=== PATIENT | female | born 1930 | race Caucasian/White ===

== ENCOUNTER 2020-07-04 16:17 | Inpatient (IN) | payer MEDICARE, OTHER ==
[~2020-07-04] VITALS: Ht 165.1 cm; Wt 78.5 kg
[2020-07-04] VITALS (8 sets, daily range): BP systolic 108–162; BP diastolic 73–88
[~2020-07-04 16:17] MED LIST: ACET500T73 PO; AMLO5TAB4 PO; APIX5TAB PO; ASPI-485 PO; ATOR20TA PO; ATOR40TA PO; CALC600T PO; CHOL500016 PO; ESZO3TAB27 PO; FURO-81 PO; HYDR-3194 PO; ISOS30TA4 PO; LISI-410 PO; LISI40TA PO; LORA0.5T PO; METO25TA4 PO; MULT-660 PO; NEBI10TA3 PO; OMEG500C PO; OMEP20TA62 PO; POTA20TA14 PO; SITA50TA PO; TICA90TA PO; TRAM100T3 PO
--- NOTE | 2020-07-04 17:11 | NUR ---
ARRIVAL PT ARRIVED TO ED WITH C/O OF SHORTNESS OF BREATH, BACK PAIN, FATIGUE AND WEAKNESS SINCE LAST TUESDAY. PT REPORTS SHE WAS SEEN BY HER PCP AND PRESCRIBED PREDNISONE BUT FORGETS TO TAKE IT AND WAS TOLD TO INCREASE HER LASIX BY DOUBLE HER NORMAL DOSE. BEDSIDE MONITORS APPLIED. VITAL SIGNS STABLE. BED IN LOW LOCKED POSITION. CALL LIGHT WITHIN REACH.
[2020-07-04 17:22] LABS: BASOPHIL % 0.3 % (0.0-0.2); EOSINOPHIL # 0.2 10^3/uL (0.0-0.2); EOSINOPHIL % 2.7 % (0.0-5.0); MEAN CORP HGB 29.9 pg (26-34); MONOCYTES # 0.8 10^3/uL (0.3-0.8); MONOCYTES % 8.4 % (5.0-12.0); NEUTROPHIL # 5.3 10^3/uL (1.8-7.7); NEUTROPHILS % 58.5 % (41.0-85.0); PLATELET COUNT 181 10^3/uL (150-400); RED CELL DISTRIBUTION WIDTH 15.6 % (11.5-14.5)
--- NOTE | 2020-07-04 17:33 | PCM.EKG ---
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
--- NOTE | 2020-07-04 17:35 | ER.PDOC ---
General Chief Complaint: Dyspnea/Respdistress Stated Complaint: SOB Time seen by MD: 17:28 Source: patient Exam Limitations: no limitations History of Present Illness Initial Comments Patient presents for SOB and fatigue. She tested positive for Covid in April and again in May. She was steadily improving until tuesday when she had recurrence of the cough, SOB, and extreme fatigue. She has a "rattling cough", but no production. No chest pain, Abd pain, N/V/D. No focal weakness. Laying in bed she has no complaints. She also reports nasal congestion Severity: moderate Activities at Onset: activity/exertion Prior Episodes/Possible Cause: occasional episodes Associated Symptoms: cough Prior symptoms/Treatment: Similar symptoms previous, Recenly Seen, Treated by Doctor, Recently Hospitalized Allergies: Coded Allergies: Penicillins (Unverified Adverse Reaction, Unknown, "IT JUST MAKES ME FEEL BAD", 02/28/17) codeine (Unverified Adverse Reaction, Unknown, "IT JUST MAKES ME FEEL BAD", 02/28/17) Home Meds Active Scripts Apixaban (Eliquis) 5 Mg Tablet, 5 MG PO BID for 30 Days, #60 TAB 3 Refills Prov:ELOISE HEDRICK MD 05/20/20 Isosorbide Mononitrate (ISOSORBIDE MONONITRATE ER) 30 Mg Tab.er.24h, 30 MG PO DAILY, #30 4 Refills Prov:CHARLENE WANG DOZER OPERATOR 03/02/17 Reported Medications Tramadol Hcl (TRAMADOL HCL) 100 Mg Tbmp.24hr, 100 MG PO DAILY24 05/01/20 Acetaminophen (ACETAMINOPHEN) 500 Mg Tablet, 2 TAB PO HS, #60 TAB 1 Refill 02/28/17 Cholecalciferol (Vitamin D3) (VITAMIN D3) 5,000 Unit Tablet, 1 TAB PO DAILY, #30 TAB 02/28/17 Atorvastatin 40MG (LIPITOR 40MG) 40 Mg Tablet, 1 TAB PO DAILY, #30 TAB 5 Refills 02/28/17 Omeprazole Magnesium (PRILOSEC OTC) 20 Mg Tablet.dr, 1 TAB PO DAILY, #30 TAB 3 Refills 02/28/17 Multivit-Min/FA/Lutein/Zeaxant (Macular Vitamin Tablet) 1 Each Tablet, 1 EACH PO DAILY, TABLET 01/24/14 Aspirin (ASPIR 81) 81 Mg Tablet.dr, 1 TAB PO DAILY, #30 TAB 5 Refills 01/24/14 [place]-3 Fatty Acids (FISH OIL) 500 Mg Capsule.dr, 1000 MG PO DAILY 01/24/14 Past Medical History Medical History: high cholesterol, hypertension, thyroid disease Surgical History: hysterectomy Social History Alcohol Use: none Drug Use: none Reviewed Nursing Reviewed: Vital Signs, Abn. Noted, Nursing Assessment Review of Systems Constitutional: no symptoms reported EENTM: no symptoms reported Respiratory: no symptoms reported Cardiovascular: see HPI Gastrointestinal: see HPI Psychiatric/Neurological: see HPI All Other Systems: Reviewed and Negative Physical Exam General Appearance: No Apparent Distress, WD/WN HEENT: PERRL/EOMI, Normal ENT Inspection, TMs Normal Neck: Non-Tender, Supple Respiratory: chest non-tender, no respiratory distress, crackles Cardiovascular: Normal Peripheral Pulses, Regular Rate, Rhythm, No Edema (left calf swelling) Gastrointestinal: Normal Bowel Sounds, Non Tender, Soft Extremities: Normal Range of Motion, Non-Tender Neurologic/Psychiatric: No Motor/Sensory Deficits, Alert Skin: Normal Color, Warm/Dry Results/Orders Results/Orders Vital Signs Date Time Temp Pulse Resp B/P (MAP) Pulse Ox O2 Delivery O2 Flow Rate FiO2 07/04/20 17:48 98.1 59 20 162/75 (104) 98 07/04/20 17:06 98.1 75 20 07/04/20 17:06 98.1 75 20 98 07/04/20 17:06 98.1 75 20 155/76 (102) 98 05/20/20 08:33 53 Laboratory Tests Test 07/04/20 17:16 07/04/20 19:40 White Blood Count 9.0 10^3/uL (4.5-11.0) Red Blood Count 4.08 10^6/uL (4.00-5.20) Hemoglobin 12.2 g/dL (12.0-15.0) Hematocrit 38.1 % (36.0-46.0) Mean Corpuscular Volume 93.4 fL (78-100) Mean Corpuscular Hemoglobin 29.9 pg (26-34) Mean Corpuscular Hemoglobin Concent 32.0 g/dL (33-36.5) L Red Cell Distribution Width 15.6 % (11.5-14.5) H Platelet Count 181 10^3/uL (150-400) Mean Platelet Volume 9.9 fL (7.8-11.0) Neutrophils (%) (Auto) 58.5 % (41.0-85.0) Lymphocytes (%) (Auto) 30.0 % (24.0-44.0) Monocytes (%) (Auto) 8.4 % (5.0-12.0) Neutrophils # (Auto) 5.3 10^3/uL (1.8-7.7) Lymphocytes # (Auto) 2.70 10^3/uL1 (1.0-4.8) Monocytes # (Auto) 0.8 10^3/uL (0.3-0.8) Absolute Immature Granulocyte (auto 0.01 10^3 u/L (0-2) Absolute Eosinophils (auto) 0.2 10^3/uL (0.0-0.2) Immature Granulocytes % 0.10 % (0.00-0.50) Eosinophils % 2.7 % (0.0-5.0) Basophils % 0.3 % (0.0-0.2) H Basophils # 0.0 10^3/uL (0.0-0.1) Prothrombin Time 12.5 SEC (9.3-11.3) H Prothrombin Time INR (Non-Therap) 1.2 Activated Partial Thromboplast Time 28.3 SEC (24.67-30.72) D-Dimer 0.47 mg/L (0.19-0.49) Sodium Level 144 mmol/L (132-145) # Potassium Level 3.5 mmol/L (3.6-5.2) L Chloride Level 108.0 mmol/L (96-109) Carbon Dioxide Level 26.2 mmol/L (20.0-32) Anion Gap 13.3 Blood Urea Nitrogen 16 mg/dL (7-18) Creatinine 1.12 mg/dL (0.59-1.40) Estimated GFR () 55.6 (>/=60) Est GFR (CKD-EPI)(Non-Afr French) 45.9 (>/=60) BUN/Creatinine Ratio 14.0 Glucose Level 144 mg/dL (70-110) H Calcium Level 8.5 mg/dL (8.4-10.5) Total Bilirubin 1.0 mg/dL (0.2-1.0) Aspartate Amino Transferase (AST) 19 U/L (0-35) Alanine Aminotransferase (ALT) 16 U/L (12-78) Alkaline Phosphatase 60 U/L (50-136) Troponin I 0.05 ng/mL (0.00-0.05) Pro-B-Type Natriuretic Peptide 6231 pg/mL (0-450) H Total Protein 6.4 g/dL (6.4-8.2) Albumin 3.1 g/dL (3.4-5.0) L Globulin 3.3 Albumin/Globulin Ratio 0.939 SARS-CoV-2 Antigen (Rapid) NEGATIVE (NEGATIVE) Progress Progress CXR:Interstitial and ground-glass infiltrates are present throughout both lungs, moderately improved from 05/17/[address] Saucedo so I discussed with him and he wants patient admitted for IV diuresis. EKG/XRAY/CT/US EKG: NSR, RBBB, LVH EKG Comments: rate 65, ER DEPART Departure Time of Disposition: 23:13 Disposition: 09 ADMITTED INPATIENT Impression: Primary Impression: Acute exacerbation of CHF (congestive heart failure) Condition: Stable Referrals: NEFTALY CALL DOZER OPERATOR (PCP) PRIMARY CARE PROVIDER Comments Admitted to Dr. Bowen, discussed with Dr. Saucedo who will be consulting. Duration or Time Spent with Pa: 60 min Problem Qualifiers Primary Impression: Acute exacerbation of CHF (congestive heart failure) Heart failure type: unspecified Qualified Codes: I50.9 - Heart failure, unspecified LILLI LOJA MD Jul 04, 2020 17:35 NANDINI HURST MD Jul 04, 2020 23:15
[2020-07-04 17:49] LABS: CALCIUM 8.5 mg/dL (8.4-10.5); CARBON DIOXIDE 26.2 mmol/L (20.0-32)
--- NOTE | 2020-07-04 18:22 | DIREP ---
PROCEDURE:CHEST 1 VIEW COMPARISON:[facility], CR, XRAY CHEST SINGLE VW, 05/17/2020, 05:53 PM. INDICATIONS:SOB FINDINGS: LUNGS/PLEURA:Interstitial and ground-glass infiltrates are present in both lungs, moderately improved from 05/17/2020. No new area of consolidation. No pleural effusions. No pneumothorax. VASCULATURE:Normal. Unremarkable pulmonary vasculature. CARDIAC:Normal. No cardiac silhouette abnormality or cardiomegaly. MEDIASTINUM:Normal. No visible mass or adenopathy. BONES:Normal. No fracture or visible bony lesion. OTHER:Negative. CONCLUSION: 1. Interstitial and ground-glass infiltrates are present throughout both lungs, moderately improved from 05/17/2020. Dictated by: Deng Orona MD on 07/04/2020 at 06:20 PM
[2020-07-04] MEDS ORDERED: LASIX IV STA (23:16)
[2020-07-04] MEDS ORDERED: LASIX ONE (23:23)
[2020-07-05] VITALS (9 sets, daily range): BP systolic 87–153; BP diastolic 49–78
--- NOTE | 2020-07-05 02:52 | PCM.HP ---
History of Present Illness History of Present Illness THIS EVALUATION WAS PERFORMED ON (DATE OF SERVICE): 07/04/2020 TIME SEEN: 0145 hours Chief Complaint: Dyspnea on exertion History of Present Illness: This is an 89-year-old female with a history of HTN, HLD, DM, CHF, chronic venous insufficiency, CKD 3, CAD, and recent PE. The patient was hospitalized here at [facility] in early May 2020 with COVID-19 pneumonia.During that hospital stay she was found to have bilateral pulmonary embolism. She was started on Eliquis, which she currently still takes. On 07/02/2020, the patient reported feeling tired, fatigued, weak. She had shortness of breath just walking across the bedroom. She denied chest pain. She noted a cough on which worsened on Tuesday. No sputum production. She is chronically on oxygen 2 L/min by nasal cannula and had the shortness of breath with minimal exertion even with the oxygen on. Because of the severe shortness of breath, she presented to the ED for evaluation. She denied fever, chills, sore throat, abdominal pain, nausea, vomiting, diarrhea. She denied missing any doses of her medications. In the ED, she was afebrile. White count normal. Blood chemistries unremarkable. Rapid Covid test negative. D-dimer normal. BNP 6231, up about 2000 from the last value. Chest x-ray showed overall improvement compared to last image. The patient was felt to have exacerbation of heart failure. The blowing weasand on-call, Dr. Saucedo, was contacted. He recommended hospitalization and IV diuretics twice daily. The patient was given IV Lasix. The hospitalist service was contacted for admission. Home medications: Aspirin 81 mg daily Furosemide 20 mg daily Lisinopril 40 mg daily Isosorbide mononitrate 30 mg daily Hydralazine 25 mg twice daily Carvedilol 6.25 mg twice daily Atorvastatin 40 mg every morning Levothyroxine, dose not known, 1 tablet Tuesday, Tuesday, Tuesday Tramadol 50 mg every 12 hours as needed for pain PreserVision 1 daily Vitamin C, dose not known, daily Vitamin D, dose not known, daily Past Medical History: Coronary artery disease Status post stent Hypertension Hyperlipidemia Type 2 diabetes mellitus without complications, without use of insulin Chronic diastolic congestive heart failure Chronic venous insufficiency Chronic kidney disease stage III Pulmonary embolism Diagnosed May 2020,Diagnosed May 2020, Family History: Diabetes mellitus-father Heart problems of unspecified type-father . Past Surgical History: Cataract Removal (Bilateral), Tonsillectomy, Other (Hysterectomy. Cardiac catheterization in 2017 with 2 stents placed.) Past Social History Smoke: No Alcohol: none Drugs: None Lives: with Family Travel Hx EBOLA RISK:Travel to/contact w: No Review of Systems Constitutional: Weakness (Generalized without focal deficit), Malaise; No: Fever, Chills, Sweats, Other Eyes: No: Pain, Vision change, Conjunctivae inflammation, Eyelid inflammation, Redness ENT: No: Ear pain, Ear discharge, Nose discharge, Nose congestion, Mouth pain, Mouth swelling, Throat pain Respiratory: Cough, Dry, SOB with excertion; No: Shortness of breath, Wheezing, Hemoptysis, Pleuritic Pain, Sputum Cardiovascular: No: Chest Pain, Palpitations, Orthopnea, Paroxysmal Noc. Dyspnea, Edema, Lt Headedness Gastrointestinal: No: Nausea, Vomiting, Abdominal Pain, Diarrhea, Constipation, Melena, Hematochezia Genitourinary: No Dysuria, No Frequency, No Incontinence, No Hematuria, No Retention Musculoskeletal: No: neck pain, shoulder pain, arm pain, back pain, hand pain, leg pain, foot pain Skin: No: Rash, Lesions, Jaundice, Bruising Neurological: Weakness (Generalized without focal deficit); No: Numbness, Incoordination, Change in speech, Confusion, Seizures Allergies: Coded Allergies: Penicillins (Unverified Adverse Reaction, Unknown, "IT JUST MAKES ME FEEL BAD", 02/28/17) codeine (Unverified Adverse Reaction, Unknown, "IT JUST MAKES ME FEEL BAD", 02/28/17) Scheduled Acetaminophen (Acetaminophen), 2 TAB PO HS, (Reported) Apixaban (Eliquis), 5 MG PO BID Aspirin (Aspir 81), 1 TAB PO DAILY, (Reported) Atorvastatin 40MG (Lipitor 40MG), 1 TAB PO DAILY, (Reported) Cholecalciferol (Vitamin D3) (Vitamin D3), 1 TAB PO DAILY, (Reported) Isosorbide Mononitrate (Isosorbide Mononitrate Er), 30 MG PO DAILY Multivit-Min/FA/Lutein/Zeaxant (Macular Vitamin Tablet), 1 EACH PO DAILY, (Reported) [place]-3 Fatty Acids (Fish Oil), 1,000 MG PO DAILY, (Reported) Omeprazole Magnesium (Prilosec Otc), 1 TAB PO DAILY, (Reported) Tramadol Hcl (Tramadol Hcl), 100 MG PO DAILY24, (Reported) VTE VTE Risk Total Score: >5 VTE Risk Score VTE Risk: Score 0-1 = Low Risk (Aggressive mobilization; early ambulation; no VTE prophylaxis required) Score 2: Moderate Risk (Intermittent/Pneumatic Compression Device OR Lovenox/Heparin/Coumadin) Score 3-4: High Risk (Intermittent/Pneumatic Compression Device AND Lovenox/Heparin/Coumadin) Score > or =5: Highest Risk (Intermittent/Pneumatic Compression Device AND Lovenox/Heparin/Coumadin) Antico:Hep/LMWH/Coum/Xarelto: Yes VTE VTE Present on Admission: No Currently receiving anticoagul: Yes VTE Risk Total Score: >5 Antico:Hep/LMWH/Coum/Xarelto: Yes Exam Vital Signs Vital Signs Date Time Temp Pulse Resp B/P (MAP) Pulse Ox O2 Delivery O2 Flow Rate FiO2 07/05/20 02:12 Room Air 07/04/20 23:57 98.6 68 18 108/88 (95) 96 2.00 Weight 78.49 kg Height 165.1 cm BMI 28.8 kg/m General Appearance: Alert, Oriented X3, Cooperative, No acute distress HEENT: Atraumatic, PERRLA, EOMI, Mucous membr. moist/pink, Other (Normocephalic. Oropharynx clear without erythema, exudates, or ulcerations.) Respiratory: Other (Normal air movement. Rales in the bases bilaterally.) Cardiovascular: Regular rate, Normal S1, Normal S2, No murmurs Abdominal: Normal bowel sounds, Soft, No tenderness, No hepatospenomegaly, No masses Extremities: No clubbing, No cyanosis, No edema, Normal pulses, No tenderness/swelling Skin: No rash, No breakdown, No lesions Neuro: Normal speech, Strength at 5/5 X4 ext, Normal tone, Sensation intact, Cranial nerves 3-12 NL, Reflexes 2+ LAB RESULTS Item Value Date Time White Blood Count 9.0 10^3/uL 07/04/20 171 Hemoglobin 12.2 g/dL 07/04/20 171 Hematocrit 38.1 % 07/04/20 171 Platelet Count 181 10^3/uL 07/04/20 1716 Item Value Date Time Prothrombin Time 12.5 SEC H 07/04/20 1716 Prothrombin Time INR (Non-Therap) 1.2 07/04/20 1716 Activated Partial Thromboplast Time 28.3 SEC 07/04/20 1716 D-Dimer 0.47 mg/L 07/04/20 1716 Item Value Date Time Sodium Level 144 mmol/L # 07/04/20 1716 Potassium Level 3.5 mmol/L L 07/04/20 1716 Chloride Level 108.0 mmol/L 07/04/20 1716 Carbon Dioxide Level 26.2 mmol/L 07/04/20 1716 Anion Gap 13.3 07/04/20 1716 Blood Urea Nitrogen 16 mg/dL 07/04/20 1716 Creatinine 1.12 mg/dL 07/04/20 1716 Glucose Level 144 mg/dL H 07/04/20 1716 Calcium Level 8.5 mg/dL 07/04/20 1716 Total Bilirubin 1.0 mg/dL 07/04/20 1716 Aspartate Amino Transf (AST/SGOT) 19 U/L 07/04/20 1716 Alanine Aminotransferase (ALT/SGPT) 16 U/L 07/04/20 1716 Alkaline Phosphatase 60 U/L 07/04/20 1716 Total Protein 6.4 g/dL 07/04/20 1716 Albumin 3.1 g/dL L 07/04/20 1716 Globulin 3.3 07/04/20 1716 Item Value Date Time Troponin I 0.05 ng/mL 07/04/20 1716 Pro-B-Type Natriuretic Peptide 6231 pg/mL H 07/04/20 1716 Item Value Date Time SARS-CoV-2 Antigen (Rapid) NEGATIVE 07/04/20 1940 Radiology: PROCEDURE:CHEST 1 VIEW FINDINGS: LUNGS/PLEURA:Interstitial and ground-glass infiltrates are present in both lungs, moderately improved from 05/17/2020. No new area of consolidation. No pleural effusions. No pneumothorax. VASCULATURE:Normal. Unremarkable pulmonary vasculature. CARDIAC:Normal. No cardiac silhouette abnormality or cardiomegaly. MEDIASTINUM:Normal. No visible mass or adenopathy. BONES:Normal. No fracture or visible bony lesion. OTHER:Negative. CONCLUSION: 1. Interstitial and ground-glass infiltrates are present throughout both lungs, moderately improved from 05/17/2020. Dictated by: Deng Orona MD on 07/04/2020 at 06:20 PM (I have personally interpreted): NSR. LAD (-67 degrees). Bifascicular block (RBBB + LAFB. . Dietary Evaluation Dietary Evaluation Recommendations by RD: Dietary education by RD Assessment/Plan Assessment/Plan Assessment/Plan ASSESSMENT Acute on chronic diastolic congestive heart failure Echo done in May 2020 revealed normal EF (55 to 60%). Diastolic dysfunction noted. Pulmonary embolism Diagnosed in May 2020, placed on Eliquis and she is continuing to take this. No indication of exacerbation at this time. Multiple chronic medical problems, stable PLAN Admit Acute on chronic diastolic congestive heart failure Telemetry monitoring IV furosemide twice daily Monitor I&O Daily weight Monitor renal function, potassium, sodium Pulmonary embolism Continue Eliquis twice daily Multiple chronic medical problems, stable Continue home meds At this point, I anticipate patient will be hospitalized greater than 2 midnights. I expect she will be discharged home. I do not anticipate a need for DME. Hospitalization is required for Telemetry monitoring, IV diuretics, I&O monitoring, daily weights, serial lab monitoring. Resuscitation/advance directives: Discussed with patient. Full code. No advance directive. No medical POA document. Yvette Hunt III, MD . Problems: (1) Acute on chronic diastolic congestive heart failure Status: Acute ICD Code: I50.33 - Acute on chronic diastolic (congestive) heart failure SNOMED: 162748854, [id number] (2) Pulmonary embolism ICD Code: I26.99 - Other pulmonary embolism without acute cor pulmonale SNOMED: 00018293 Problem Qualifiers (1) Pulmonary embolism: Chronicity: acute Acute cor pulmonale presence: without acute cor pulmonale JENNA HUNT MD Jul 05, 2020 02:52
[2020-07-05 05:25] LABS: BASOPHIL % 0.2 % (0.0-0.2); EOSINOPHIL # 0.3 10^3/uL (0.0-0.2); EOSINOPHIL % 3.4 % (0.0-5.0); LYMPHOCYTES % 26.4 % (24.0-44.0); MEAN CORP HGB 30.6 pg (26-34); MONOCYTES # 0.8 10^3/uL (0.3-0.8); MONOCYTES % 8.9 % (5.0-12.0); NEUTROPHIL # 5.3 10^3/uL (1.8-7.7); PLATELET COUNT 177 10^3/uL (150-400); RED CELL DISTRIBUTION WIDTH 15.6 % (11.5-14.5)
[2020-07-05 05:31] LABS: CALCIUM 9.1 mg/dL (8.4-10.5); CARBON DIOXIDE 27.4 mmol/L (20.0-32)
[2020-07-05] MEDS ORDERED: APRESOLINE PO SCH (09:00)
[2020-07-05] MEDS: ZESTRIL PO SCH (09:00)
[2020-07-05] MEDS ORDERED: IMDUR PO SCH (09:00)
[2020-07-05] MEDS: LASIX IV SCH ×2 (09:46→21:00)
[2020-07-05] MEDS: COREG PO SCH ×2 (09:47→21:00)
[2020-07-05] MEDS: ASPIRIN EC PO SCH (09:47)
[2020-07-05] MEDS: DEXAMETHASONE 10 MG/ML VIAL IV SCH (12:20)
[2020-07-05] MEDS ORDERED: NS 250ML 250 ML IV ONE (18:05)
--- NOTE | 2020-07-05 19:53 | CNH ---
DATE OF CONSULTATION: 07/05/2020 REASON FOR CONSULTATION: Acute decompensated heart failure secondary to diastolic dysfunction. HISTORY OF PRESENT ILLNESS: This is an 89-year-old female who presented to the Emergency Room yesterday with progressively worsening shortness of breath and extreme fatigue. She denies any chest pain or palpitations. EKG done in the Emergency Room revealed normal sinus rhythm with a right bundle branch block with no evidence of myocardial ischemia. ProBNP was noted to be significantly elevated at 6231. A diagnosis of acute decompensated heart failure was made and a consultation was placed to Cardiology Service. Troponin is negative x 1. Chest x-ray done on admission revealed interstitial and ground-glass infiltrates present throughout both lungs moderately improved from prior chest x-ray. Of note, the patient was diagnosed with COVID-19 infection in May 2020 and subsequently developed pulmonary embolism of which she currently takes Eliquis oral anticoagulation. PAST MEDICAL HISTORY: Significant for: 1. Chronic CHF. 2. Recent diagnosis of pulmonary embolism. 3. Hypertension. 4. Hyperlipidemia. 5. Type 2 diabetes mellitus. 6. Mixed hyperlipidemia. 7. Chronic venous insufficiency. 8. Chronic kidney disease stage 3. 9. Severe tricuspid regurgitation. 10. Known CAD, status post PCI in the past. PAST SURGICAL HISTORY: 1. Bilateral cataract surgery. 2. Hysterectomy. 3. Cardiac catheterization done in 2017 with PCI x 2 stents. FAMILY HISTORY: She admits to family history of premature coronary artery disease, but denies sudden cardiac . SOCIAL HISTORY: Denies alcohol use, denies tobacco use, denies illicit drug use. ALLERGIES: SHE IS ALLERGIC TO PENICILLIN AND CODEINE. MEDICATIONS: She takes at home includes: 1. [place] 3 fatty acid. 2. Aspirin 81 mg daily. 3. Lasix 20 mg Tuesday, Tuesday, Tuesday. 4. Lisinopril 40 mg daily. 5. Omeprazole. 6. Lipitor 40 mg at bedtime. 7. Hydralazine 25 mg b.i.d. 8. Tramadol. 9. Imdur 30 mg daily. 10. Amlodipine 10 mg daily. 11. Metoprolol tartrate 25 mg b.i.d. REVIEW OF SYSTEMS: As per HPI and as per previous records. All systems reviewed and negative for interval change. PHYSICAL EXAMINATION: VITAL SIGNS: Blood pressure is 87/49, respiratory rate is 19, pulse is 60, temperature 97.8, pulse oximetry is 95% on room air. GENERAL: She is in no apparent distress, alert and oriented x 3. HEENT: Normocephalic, atraumatic. Extraocular muscles intact. Pupils equal, round, reactive to light and accommodation. LUNGS: Decreased breath sounds bilaterally. CARDIAC: S1, S2. No gallops, plus 3/6 holosystolic murmur. ABDOMEN: Soft, nontender, nondistended, positive bowel sounds in all 4 quadrants. EXTREMITIES: No cyanosis, no clubbing, +1 pitting edema bilaterally. NEUROLOGIC: No neurological deficits. Sensation is intact. IMPRESSION: 1. Acute decompensated heart failure secondary to diastolic dysfunction. 2. Recent diagnosis of pulmonary embolism following COVID-19 infection in May 2020. 3. Recent diagnosis of COVID-19 infection in May 2020. 4. Known coronary artery disease, status post PCI x 2 stents in 2017. 5. Hypertension. 6. Hyperlipidemia. 7. Type 2 diabetes mellitus. 8. Chronic congestive heart failure due to diastolic dysfunction. 9. Chronic venous insufficiency. 10. Chronic kidney disease stage 3. 11. Severe tricuspid regurgitation. 12. Normal cardiac stress test done July 2019. RECOMMENDATIONS: This is an 89-year-old female who is presenting to the hospital with progressively worsening shortness of breath and is found to be in decompensated heart failure. She is currently receiving diuretic therapy with Lasix 40 IV b.i.d. She appears to be hypotensive at this time with a blood pressure of 87/49. I am going to discontinue her hydralazine as well as Imdur medications. She will be kept on beta milan as well as PATRICIA inhibitor therapy for now. I certainly would recommend to monitor blood pressure and heart rate daily. I would obtain a 2D echo to reevaluate her left ventricular ejection fraction and structural integrity of her heart. She does have a history of severe tricuspid regurgitation. However, she is refusing any surgical invasive therapies at this time. EKG does not show any evidence of myocardial ischemia. She denies any chest pain. Troponin is currently negative x 1. She is currently on Eliquis for oral anticoagulation given her recent diagnosis of pulmonary embolism following COVID-19 infection. Further recommendations will be made based on her overall clinical course. Eventually when she becomes euvolemic, I would likely pursue cardiac stress test in the outpatient setting. LENNOX MULTANI D.O. DR: Nehal JOB# [id number]
[2020-07-05] MEDS ORDERED: TYLENOL PO ONE (21:51)
[2020-07-05] MEDS: LIPITOR PO SCH (22:12)
[2020-07-05] MEDS: TYLENOL PO SCH (22:13)
[2020-07-05] MEDS: ELIQUIS PO SCH (22:13)
[2020-07-06] VITALS (9 sets, daily range): BP systolic 105–136; BP diastolic 48–85
[2020-07-06] MEDS: LASIX IV SCH (09:00)
[2020-07-06] MEDS: ZESTRIL PO SCH (09:00)
[2020-07-06] MEDS: DEXAMETHASONE 10 MG/ML VIAL IV SCH (09:00)
[2020-07-06] MEDS: ASPIRIN EC PO SCH (10:05)
[2020-07-06] MEDS: ELIQUIS PO SCH ×2 (10:06→20:48)
[2020-07-06 10:35] LABS: BASOPHIL % 0.4 % (0.0-0.2); EOSINOPHIL # 0.5 10^3/uL (0.0-0.2); EOSINOPHIL % 5.8 % (0.0-5.0); LYMPHOCYTES # 2.71 10^3/uL1 (1.0-4.8); LYMPHOCYTES % 33.7 % (24.0-44.0); MEAN CORP HGB 30.3 pg (26-34); MONOCYTES # 0.8 10^3/uL (0.3-0.8); MONOCYTES % 9.3 % (5.0-12.0); NEUTROPHIL # 4.1 10^3/uL (1.8-7.7); NEUTROPHILS % 50.7 % (41.0-85.0); PLATELET COUNT 187 10^3/uL (150-400); RED CELL DISTRIBUTION WIDTH 15.4 % (11.5-14.5)
[2020-07-06 10:50] LABS: CALCIUM 8.8 mg/dL (8.4-10.5); CARBON DIOXIDE 30.4 mmol/L (20.0-32)
--- NOTE | 2020-07-06 14:41 | PRM.PN ---
Subjective Subjective Date: Jul 06, 2020 Time: 14:38 Subjective Resting comfortably in bed no overnight events Patient History: Alzheimer's disease 32 MOTHER, , Age:84 Cerebrovascular disorder 32 MOTHER, , Age:82 Congestive heart failure 33 FATHER, , Age:90 Diabetes mellitus 33 FATHER, , Age:90 FH: chronic lung disease requiring oxygen 33 FATHER, , Age:90 FH: coronary artery disease 32 MOTHER, , Age:82 FH: heart attack 33 FATHER, , Age:90 No known health problems 21 CHILD, , Age:28 No Family History of: Asthma Hypertension Parkinson's disease VTE VTE Risk Total Score: >5 VTE Risk Score VTE Risk: Score 0-1 = Low Risk (Aggressive mobilization; early ambulation; no VTE prophylaxis required) Score 2: Moderate Risk (Intermittent/Pneumatic Compression Device OR Lovenox/Heparin/Coumadin) Score 3-4: High Risk (Intermittent/Pneumatic Compression Device AND Lovenox/Heparin/Coumadin) Score > or =5: Highest Risk (Intermittent/Pneumatic Compression Device AND Lovenox/Heparin/Coumadin) Antico:Hep/LMWH/Coum/Xarelto: Yes Review of Systems Constitutional: Weakness (Generalized without focal deficit), Malaise; No: Fever, Chills, Sweats, Other Eyes: No: Pain, Vision change, Conjunctivae inflammation, Eyelid inflammation, Redness ENT: No: Ear pain, Ear discharge, Nose discharge, Nose congestion, Mouth pain, Mouth swelling, Throat pain Respiratory: Cough, Dry, SOB with excertion; No: Shortness of breath, Wheezing, Hemoptysis, Pleuritic Pain, Sputum Cardiovascular: No: Chest Pain, Palpitations, Orthopnea, Paroxysmal Noc. Dyspnea, Edema, Lt Headedness Gastrointestinal: No: Nausea, Vomiting, Abdominal Pain, Diarrhea, Constipation, Melena, Hematochezia Genitourinary: No Dysuria, No Frequency, No Incontinence, No Hematuria, No Retention Musculoskeletal: No: neck pain, shoulder pain, arm pain, back pain, hand pain, leg pain, foot pain Skin: No: Rash, Lesions, Jaundice, Bruising Neurological: Weakness (Generalized without focal deficit); No: Numbness, Incoordination, Change in speech, Confusion, Seizures Allergies: Coded Allergies: Penicillins (Unverified Adverse Reaction, Unknown, "IT JUST MAKES ME FEEL BAD", 02/28/17) codeine (Unverified Adverse Reaction, Unknown, "IT JUST MAKES ME FEEL BAD", 02/28/17) Scheduled Acetaminophen (Acetaminophen), 2 TAB PO HS, (Reported) Apixaban (Eliquis), 5 MG PO BID Aspirin (Aspir 81), 1 TAB PO DAILY, (Reported) Atorvastatin 40MG (Lipitor 40MG), 1 TAB PO DAILY, (Reported) Cholecalciferol (Vitamin D3) (Vitamin D3), 1 TAB PO DAILY, (Reported) Isosorbide Mononitrate (Isosorbide Mononitrate Er), 30 MG PO DAILY Multivit-Min/FA/Lutein/Zeaxant (Macular Vitamin Tablet), 1 EACH PO DAILY, (Reported) Lilly-3 Fatty Acids (Fish Oil), 1,000 MG PO DAILY, (Reported) Omeprazole Magnesium (Prilosec Otc), 1 TAB PO DAILY, (Reported) Tramadol Hcl (Tramadol Hcl), 100 MG PO DAILY24, (Reported) Objective Vitals and I/O Vital Sign - Last 24 Hours 07/06/20 07/06/20 07/06/20 07/06/20 09:00 09:00 09:00 09:03 Temp 97.7 97.7 Pulse 55 55 Resp 20 20 B/P (MAP) 107/62 107/62 114/53 (73) 114/53 (73) Pulse Ox 97 97 07/06/20 07/06/20 10:21 13:36 Temp 97.7 Pulse 55 Resp 20 B/P (MAP) 124/64 (84) Pulse Ox 98 O2 Delivery Nasal Cannula O2 Flow Rate 2.00 Intake and Output 07/06/20 07:00 Intake Total 480 ml Output Total 1400 ml Balance -920 ml General: Alert, Oriented X3, Cooperative, No acute distress HEENT: Atraumatic, PERRLA, EOMI, Mucous membr. moist/pink, Other (Normocephalic. Oropharynx clear without erythema, exudates, or ulcerations.) Lungs: Clear to auscultation, Normal air movement, Other (Normal air movement. Rales in the bases bilaterally.) Heart: Regular rate, Normal S1, Normal S2, No murmurs Abdomen: Normal bowel sounds, Soft, No tenderness, No hepatospenomegaly, No masses Extremities: No clubbing, No cyanosis, No edema, Normal pulses, No tenderness/swelling Neuro: Normal speech, Strength at 5/5 X4 ext, Normal tone, Sensation intact, Cranial nerves 3-12 NL, Reflexes 2+ Psych/Mental Status: Mood NL All Results(Lab/Rad) Laboratory Tests Test 07/06/20 09:45 White Blood Count 8.1 10^3/uL Red Blood Count 3.99 10^6/uL Hemoglobin 12.1 g/dL Hematocrit 37.9 % Mean Corpuscular Volume 95.0 fL Mean Corpuscular Hemoglobin 30.3 pg Mean Corpuscular Hemoglobin Concent 31.9 g/dL Red Cell Distribution Width 15.4 % Platelet Count 187 10^3/uL Mean Platelet Volume 10.4 fL Neutrophils (%) (Auto) 50.7 % Lymphocytes (%) (Auto) 33.7 % Monocytes (%) (Auto) 9.3 % Neutrophils # (Auto) 4.1 10^3/uL Lymphocytes # (Auto) 2.71 10^3/uL1 Monocytes # (Auto) 0.8 10^3/uL Absolute Immature Granulocyte (auto 0.01 10^3 u/L Absolute Eosinophils (auto) 0.5 10^3/uL Immature Granulocytes % 0.10 % Eosinophils % 5.8 % Basophils % 0.4 % Basophils # 0.0 10^3/uL Sodium Level 146 mmol/L Potassium Level 4.2 mmol/L Chloride Level 108.0 mmol/L Carbon Dioxide Level 30.4 mmol/L Anion Gap 11.8 Blood Urea Nitrogen 15 mg/dL Creatinine 1.20 mg/dL Estimated GFR () 51.3 Est GFR (CKD-EPI)(Non-Afr Jamaican) 42.4 BUN/Creatinine Ratio 12.0 Glucose Level 161 mg/dL Calcium Level 8.8 mg/dL Total Bilirubin 0.8 mg/dL Aspartate Amino Transf (AST/SGOT) 19 U/L Alanine Aminotransferase (ALT/SGPT) 13 U/L Alkaline Phosphatase 59 U/L Total Protein 6.1 g/dL Albumin 2.9 g/dL Globulin 3.2 Albumin/Globulin Ratio 0.906 Current Medications Medications (Trade) Dose Ordered Sig/Irais Route PRN Reason Start Time Stop Time Status Last Admin Dose Admin Furosemide (Lasix) 40 mg STAT STAT IV 07/04/20 23:16 07/04/20 23:17 DC 07/04/20 23:27 Furosemide (Lasix) 40 mg STK-MED ONCE .ROUTE 07/04/20 23:23 07/04/20 23:23 DC Aspirin (Aspirin Ec) 81 mg DAILY PO 07/05/20 09:00 08/04/20 08:59 07/06/20 10:05 Acetaminophen (Tylenol) 1,000 mg HS PO 07/05/20 21:00 08/04/20 20:59 07/05/20 22:13 Lisinopril (Zestril) 40 mg DAILY PO 07/05/20 09:00 08/04/20 08:59 07/05/20 09:00 Isosorbide Mononitrate (Imdur) 30 mg DAILY PO 07/05/20 09:00 07/05/20 17:35 DC 07/05/20 09:48 Hydralazine HCl (Apresoline) 25 mg BID PO 07/05/20 09:00 07/05/20 17:35 DC 07/05/20 09:47 Carvedilol (Coreg) 6.25 mg BID PO 07/05/20 09:00 07/06/20 00:57 DC 07/05/20 09:47 Atorvastatin Calcium (Lipitor) 40 mg HS PO 07/05/20 21:00 08/04/20 20:59 07/05/20 22:12 Levothyroxine Sodium (Levothyroxine Sodium) 25 mcg MoWeFr@0630 PO 07/07/20 06:30 08/06/20 06:29 Furosemide (Lasix) 40 mg BID IV 07/05/20 09:00 08/04/20 08:59 07/05/20 09:46 Sodium Chloride 250 ml @ ud STK-MED ONCE IV 07/05/20 18:05 07/05/20 18:05 DC Acetaminophen (Tylenol) 500 mg STK-MED ONCE PO 07/05/20 21:51 07/05/20 21:51 DC Course Sepsis Screening Results: Posi: NEGATIVE Sepsis Qualifier/Stage: NO DEFINITE RISK Duration or Total Time Spent w: 60 min Vitals & review Data Vital Sign - Last 24 Hours 07/06/20 07/06/20 07/06/20 07/06/20 09:00 09:00 09:00 09:03 Temp 97.7 97.7 Pulse 55 55 Resp 20 20 B/P (MAP) 107/62 107/62 114/53 (73) 114/53 (73) Pulse Ox 97 97 07/06/20 07/06/20 10:21 13:36 Temp 97.7 Pulse 55 Resp 20 B/P (MAP) 124/64 (84) Pulse Ox 98 O2 Delivery Nasal Cannula O2 Flow Rate 2.00 Intake and Output 07/06/20 07:00 Intake Total 480 ml Output Total 1400 ml Balance -920 ml Laboratory Tests Test 07/04/20 17:16 07/04/20 19:40 07/05/20 05:07 07/06/20 09:45 White Blood Count 9.0 10^3/uL 8.7 10^3/uL 8.1 10^3/uL Red Blood Count 4.08 10^6/uL 3.92 10^6/uL 3.99 10^6/uL Hemoglobin 12.2 g/dL 12.0 g/dL 12.1 g/dL Hematocrit 38.1 % 36.5 % 37.9 % Mean Corpuscular Volume 93.4 fL 93.1 fL 95.0 fL Mean Corpuscular Hemoglobin 29.9 pg 30.6 pg 30.3 pg Mean Corpuscular Hemoglobin Concent 32.0 g/dL 32.9 g/dL 31.9 g/dL Red Cell Distribution Width 15.6 % 15.6 % 15.4 % Platelet Count 181 10^3/uL 177 10^3/uL 187 10^3/uL Mean Platelet Volume 9.9 fL 9.6 fL 10.4 fL Neutrophils (%) (Auto) 58.5 % 61.0 % 50.7 % Lymphocytes (%) (Auto) 30.0 % 26.4 % 33.7 % Monocytes (%) (Auto) 8.4 % 8.9 % 9.3 % Neutrophils # (Auto) 5.3 10^3/uL 5.3 10^3/uL 4.1 10^3/uL Lymphocytes # (Auto) 2.70 10^3/uL1 2.30 10^3/uL1 2.71 10^3/uL1 Monocytes # (Auto) 0.8 10^3/uL 0.8 10^3/uL 0.8 10^3/uL Absolute Immature Granulocyte (auto 0.01 10^3 u/L 0.01 10^3 u/L 0.01 10^3 u/L Absolute Eosinophils (auto) 0.2 10^3/uL 0.3 10^3/uL 0.5 10^3/uL Immature Granulocytes % 0.10 % 0.10 % 0.10 % Eosinophils % 2.7 % 3.4 % 5.8 % Basophils % 0.3 % 0.2 % 0.4 % Basophils # 0.0 10^3/uL 0.0 10^3/uL 0.0 10^3/uL Prothrombin Time 12.5 SEC Prothrombin Time INR (Non-Therap) 1.2 Activated Partial Thromboplast Time 28.3 SEC D-Dimer 0.47 mg/L Sodium Level 144 mmol/L 145 mmol/L 146 mmol/L Potassium Level 3.5 mmol/L 3.3 mmol/L 4.2 mmol/L Chloride Level 108.0 mmol/L 108.0 mmol/L 108.0 mmol/L Carbon Dioxide Level 26.2 mmol/L 27.4 mmol/L 30.4 mmol/L Anion Gap 13.3 12.9 11.8 Blood Urea Nitrogen 16 mg/dL 17 mg/dL 15 mg/dL Creatinine 1.12 mg/dL 1.22 mg/dL 1.20 mg/dL Estimated GFR () 55.6 50.3 51.3 Est GFR (CKD-EPI)(Non-Afr Jamaican) 45.9 41.6 42.4 BUN/Creatinine Ratio 14.0 13.0 12.0 Glucose Level 144 mg/dL 220 mg/dL 161 mg/dL Calcium Level 8.5 mg/dL 9.1 mg/dL 8.8 mg/dL Total Bilirubin 1.0 mg/dL 0.8 mg/dL Aspartate Amino Transf (AST/SGOT) 19 U/L 19 U/L Alanine Aminotransferase (ALT/SGPT) 16 U/L 13 U/L Alkaline Phosphatase 60 U/L 59 U/L Troponin I 0.05 ng/mL Pro-B-Type Natriuretic Peptide 6231 pg/mL 5481 pg/mL Total Protein 6.4 g/dL 6.1 g/dL Albumin 3.1 g/dL 2.9 g/dL Globulin 3.3 3.2 Albumin/Globulin Ratio 0.939 0.906 SARS-CoV-2 Antigen (Rapid) NEGATIVE Current Medications Medications (Trade) Dose Ordered Sig/Irais PRN Reason Start Time Stop Time Status Last Admin Acetaminophen (Tylenol) 1,000 mg HS 07/05/20 21:00 08/04/20 20:59 07/05/20 22:13 Aspirin (Aspirin Ec) 81 mg DAILY 07/05/20 09:00 08/04/20 08:59 07/06/20 10:05 Atorvastatin Calcium (Lipitor) 40 mg HS 07/05/20 21:00 08/04/20 20:59 07/05/20 22:12 Furosemide (Lasix) 40 mg BID 07/05/20 09:00 08/04/20 08:59 07/05/20 09:46 Levothyroxine Sodium (Levothyroxine Sodium) 25 mcg MoWeFr@0630 07/07/20 06:30 08/06/20 06:29 Lisinopril (Zestril) 40 mg DAILY 07/05/20 09:00 08/04/20 08:59 07/05/20 09:00 LEVEL 1 SEPSIS INFECTION CRITE: None/Not assessed LEVEL 2-SIRS (LIST ALL THAT AP: None/Not assessed Cardiovascular Evidence: Not Assessed or None Hematologic Evidence: None/Not assessed Hepatic Evidence: None/Not assessed Metabolic Evidence: None/Not assessed Neurological Evidence: None/Not assessed Respiratory Evidence: Need for O2 to keep>90% Renal Evidence: >Crea0.5mg frm baseline O2 Sat by Pulse Oximetry: 98 Oxygen Flow Rate: 2.00 Assessment/Plan Assessment/Plan Plan ASSESSMENT Acute on chronic diastolic congestive heart failure Echo done in May 2020 revealed normal EF (55 to 60%). Diastolic dysfunction noted. Pulmonary embolism Diagnosed in May 2020, placed on Eliquis and she is continuing to take this. No indication of exacerbation at this time. Multiple chronic medical problems, stable PLAN Admit Acute on chronic diastolic congestive heart failure Telemetry monitoring IV furosemide twice daily Monitor I&O Daily weight Monitor renal function, potassium, sodium Hypotensive Lasix 40 IV b.i.d. discontinue her hydralazine as well as Imdur kept on beta milan as well as PATRICIA inhibitor therapy obtain a 2D echo to reevaluate her left ventricular ejection fraction and structural integrity of her heart. Pulmonary embolism Continue Eliquis twice daily Multiple chronic medical problems, stable Continue home meds Disposition: Follow-up with cardiology for echo continue hold hydralazine and Imdur blood pressure seems to be improving continue to monitor TONYA ESCOBEDO MD Jul 06, 2020 14:41
--- NOTE | 2020-07-06 18:46 | PCM.ECHO ---
APPROVED REPORT EXAM: Comprehensive 2D, Doppler, and color-flow Echocardiogram. Patient Location: IN-PATIENT Indications Congestive Heart Failure 2D Dimensions LVOT Diameter 2.00 (1.8-2.4cm) LVEF(%) 64.96 (>50%) M-Mode Dimensions RVDd 1.95 (2.1-3.2cm) Left Atrium(MM) 5.05 (2.5-4.0cm) IVSd 1.60 (0.7-1.1cm) Aortic Root 2.45 (2.2-3.7cm) LVDd 4.40 (4.0-5.6cm) Aortic Cusp Exc 1.50 (1.5-2.0cm) PWd 1.30 (0.7-1.1cm) MV EPSS 0.88 (<0.5cm) IVSs 2.20 cm FS (%) 43.40 % LVDs 2.50 (2.0-3.8cm) ESV(Teich) 22.45 ml PWs 1.40 cm LVEF(%) 74.78 (>50%) Volumes Biplane 2D LV Volumes Biplane 2D LA Volumes LVEDv A4C 96.26 mL LA ESV Index LVESv A4C 33.73 mL Aortic Valve AoV Peak West. 1.60 m/s AoV VTI 38.15 cm AO Peak GR. 10.75 mmHg AO Mean GR. 6.30 mmHg LVOT VTI 25.85 cm LVOT Peak West. 1.10 m/s ANTWON(VTI)/BSA 2.12 cm2/m2 ANTWON (VTI) 2.12 cm2 Mitral Valve MV E Velocity 0.80m/s MR Peak Gr. 10.05mmHg MV A Velocity 1.50m/s MV Mean Gr. 2.25mmHg Tricuspid Valve TR P. Velocity 2.90m/s RAP ESTIMATE 10.00mmHg TR Peak Gr. 34.38mmHg RVSP 44.38mmHg LEFT VENTRICLE The left ventricle is normal size. The left ventricular systolic function is normal. The left ventricular ejection fraction is within the normal range. Severe concentric left ventricular hypertrophy. There is normal LV segmental wall motion. There is no ventricular septal defect visualized. No left ventricle thrombus noted on this study. LVEF is 65-70%. RIGHT VENTRICLE The right ventricle is normal size. The right ventricular systolic function is normal. There is normal right ventricular wall thickness. ATRIA The left atrium size is normal. Right atrium is severely dilated. The interatrial septum is intact with no evidence for an atrial septal defect. AORTIC VALVE The aortic valve is normal in structure. There is no aortic valvular stenosis. No aortic regurgitation is present. There is no aortic valvular vegetation. MITRAL VALVE The mitral valve is normal in structure. There is no mitral valve stenosis. Mild mitral regurgitation. There is no evidence of mitral valve vegetations. TRICUSPID VALVE The tricuspid valve is normal in structure. There is no tricuspid valve stenosis. Severe tricuspid regurgitation. Moderate pulmonary hypertension. There is no tricuspid valve vegetations. PULMONIC VALVE The pulmonary valve is normal in structure. There is no pulmonic valvular stenosis. There is no pulmonic valvular regurgitation. GREAT VESSELS The aortic root is normal in size. Pulmonary artery is not well visualized. Aortic arch is not well visualized. The IVC is normal in size and collapses >50% with inspiration. PERICARDIUM There is no pericardial effusion. There is no pleural effusion. Other Information Study Quality: Fair <Conclusion> The left ventricular systolic function is normal. LVEF is 65-70%. Severe concentric left ventricular hypertrophy. Right atrium is severely dilated. Mild mitral regurgitation. Severe tricuspid regurgitation. Electronically signed by : LENNOX MULTANI. 07/06/2020 18:46:16
--- NOTE | 2020-07-06 19:23 | PRM.PN ---
Subjective Subjective Date: Jul 06, 2020 Time: 19:18 Subjective Patient resting comfortably No cardiac issues overnight Review of Systems Constitutional: Weakness (Generalized without focal deficit), Malaise; No: Fever, Chills, Sweats, Other Eyes: No: Pain, Vision change, Conjunctivae inflammation, Eyelid inflammation, Redness ENT: No: Ear pain, Ear discharge, Nose discharge, Nose congestion, Mouth pain, Mouth swelling, Throat pain Respiratory: Cough, Dry, SOB with excertion; No: Shortness of breath, Wheezing, Hemoptysis, Pleuritic Pain, Sputum Cardiovascular: No: Chest Pain, Palpitations, Orthopnea, Paroxysmal Noc. Dyspnea, Edema, Lt Headedness Gastrointestinal: No: Nausea, Vomiting, Abdominal Pain, Diarrhea, Constipation, Melena, Hematochezia Genitourinary: No Dysuria, No Frequency, No Incontinence, No Hematuria, No Rete ntion Musculoskeletal: No: neck pain, shoulder pain, arm pain, back pain, hand pain, leg pain, foot pain Skin: No: Rash, Lesions, Jaundice, Bruising Neurological: Weakness (Generalized without focal deficit); No: Numbness, Incoordination, Change in speech, Confusion, Seizures Allergies: Coded Allergies: Penicillins (Unverified Adverse Reaction, Unknown, "IT JUST MAKES ME FEEL BAD", 02/28/17) codeine (Unverified Adverse Reaction, Unknown, "IT JUST MAKES ME FEEL BAD", 02/28/17) Scheduled Acetaminophen (Acetaminophen), 2 TAB PO HS, (Reported) Apixaban (Eliquis), 5 MG PO BID Aspirin (Aspir 81), 1 TAB PO DAILY, (Reported) Atorvastatin 40MG (Lipitor 40MG), 1 TAB PO DAILY, (Reported) Cholecalciferol (Vitamin D3) (Vitamin D3), 1 TAB PO DAILY, (Reported) Isosorbide Mononitrate (Isosorbide Mononitrate Er), 30 MG PO DAILY Multivit-Min/FA/Lutein/Zeaxant (Macular Vitamin Tablet), 1 EACH PO DAILY, (Reported) [place]-3 Fatty Acids (Fish Oil), 1,000 MG PO DAILY, (Reported) Omeprazole Magnesium (Prilosec Otc), 1 TAB PO DAILY, (Reported) Tramadol Hcl (Tramadol Hcl), 100 MG PO DAILY24, (Reported) Objective Vitals and I/O Vital Sign - Last 24 Hours 07/05/20 07/06/20 07/06/20 07/06/20 22:08 00:28 04:22 09:00 Temp 97.2 98.4 Pulse 57 56 Resp 18 18 B/P (MAP) 112/63 (79) 105/85 (92) 106/64 (78) 107/62 Pulse Ox 96 99 O2 Delivery Room Air Room Air Nasal Canula O2 Flow Rate 2.00 07/06/20 07/06/20 07/06/20 07/06/20 09:00 09:00 09:03 10:21 Temp 97.7 97.7 Pulse 55 55 Resp 20 20 B/P (MAP) 107/62 114/53 (73) 114/53 (73) Pulse Ox 97 97 O2 Delivery Nasal Cannula O2 Flow Rate 2.00 07/06/20 07/06/20 07/06/20 07/06/20 13:36 17:08 17:09 17:10 Temp 97.7 97.9 97.9 Pulse 55 71 69 71 Resp 20 22 B/P (MAP) 124/64 (84) 105/48 (67) 105/48 (67) Pulse Ox 98 97 96 97 07/06/20 19:12 O2 Delivery Nasal Cannula O2 Flow Rate 2.00 Intake and Output 07/06/20 07:00 Intake Total 480 ml Output Total 1400 ml Balance -920 ml General: Alert, Oriented X3, Cooperative, No acute distress HEENT: Atraumatic, PERRLA, EOMI, Mucous membr. moist/pink, Other (Normocephalic. Oropharynx clear without erythema, exudates, or ulcerations.) Lungs: Clear to auscultation, Normal air movement, Other (Normal air movement. Rales in the bases bilaterally.) Heart: Regular rate, Normal S1, Normal S2, No murmurs Abdomen: Normal bowel sounds, Soft, No tenderness, No hepatospenomegaly, No masses Extremities: No clubbing, No cyanosis, No edema, Normal pulses, No tenderness/swelling Neuro: Normal speech, Strength at 5/5 X4 ext, Normal tone, Sensation intact, Cranial nerves 3-12 NL, Reflexes 2+ Psych/Mental Status: Mood NL All Results(Lab/Rad) Laboratory Tests Test 07/06/20 09:45 White Blood Count 8.1 10^3/uL Red Blood Count 3.99 10^6/uL Hemoglobin 12.1 g/dL Hematocrit 37.9 % Mean Corpuscular Volume 95.0 fL Mean Corpuscular Hemoglobin 30.3 pg Mean Corpuscular Hemoglobin Concent 31.9 g/dL Red Cell Distribution Width 15.4 % Platelet Count 187 10^3/uL Mean Platelet Volume 10.4 fL Neutrophils (%) (Auto) 50.7 % Lymphocytes (%) (Auto) 33.7 % Monocytes (%) (Auto) 9.3 % Neutrophils # (Auto) 4.1 10^3/uL Lymphocytes # (Auto) 2.71 10^3/uL1 Monocytes # (Auto) 0.8 10^3/uL Absolute Immature Granulocyte (auto 0.01 10^3 u/L Absolute Eosinophils (auto) 0.5 10^3/uL Immature Granulocytes % 0.10 % Eosinophils % 5.8 % Basophils % 0.4 % Basophils # 0.0 10^3/uL Sodium Level 146 mmol/L Potassium Level 4.2 mmol/L Chloride Level 108.0 mmol/L Carbon Dioxide Level 30.4 mmol/L Anion Gap 11.8 Blood Urea Nitrogen 15 mg/dL Creatinine 1.20 mg/dL Estimated GFR () 51.3 Est GFR (CKD-EPI)(Non-Afr [place] African) 42.4 BUN/Creatinine Ratio 12.0 Glucose Level 161 mg/dL Calcium Level 8.8 mg/dL Total Bilirubin 0.8 mg/dL Aspartate Amino Transf (AST/SGOT) 19 U/L Alanine Aminotransferase (ALT/SGPT) 13 U/L Alkaline Phosphatase 59 U/L Total Protein 6.1 g/dL Albumin 2.9 g/dL Globulin 3.2 Albumin/Globulin Ratio 0.906 Current Medications Medications (Trade) Dose Ordered Sig/Irais Route PRN Reason Start Time Stop Time Status Last Admin Dose Admin Furosemide (Lasix) 40 mg STAT STAT IV 07/04/20 23:16 07/04/20 23:17 DC 07/04/20 23:27 Furosemide (Lasix) 40 mg STK-MED ONCE .ROUTE 07/04/20 23:23 07/04/20 23:23 DC Aspirin (Aspirin Ec) 81 mg DAILY PO 07/05/20 09:00 08/04/20 08:59 07/06/20 10:05 Acetaminophen (Tylenol) 1,000 mg HS PO 07/05/20 21:00 08/04/20 20:59 07/05/20 22:13 Lisinopril (Zestril) 40 mg DAILY PO 07/05/20 09:00 08/04/20 08:59 07/05/20 09:00 Isosorbide Mononitrate (Imdur) 30 mg DAILY PO 07/05/20 09:00 07/05/20 17:35 DC 07/05/20 09:48 Hydralazine HCl (Apresoline) 25 mg BID PO 07/05/20 09:00 07/05/20 17:35 DC 07/05/20 09:47 Carvedilol (Coreg) 6.25 mg BID PO 07/05/20 09:00 07/06/20 00:57 DC 07/05/20 09:47 Atorvastatin Calcium (Lipitor) 40 mg HS PO 07/05/20 21:00 08/04/20 20:59 07/05/20 22:12 Levothyroxine Sodium (Levothyroxine Sodium) 25 mcg MoWeFr@0630 PO 07/07/20 06:30 08/06/20 06:29 Furosemide (Lasix) 40 mg BID IV 07/05/20 09:00 08/04/20 08:59 07/05/20 09:46 Sodium Chloride 250 ml @ ud STK-MED ONCE IV 07/05/20 18:05 07/05/20 18:05 DC Acetaminophen (Tylenol) 500 mg STK-MED ONCE PO 07/05/20 21:51 07/05/20 21:51 DC Assessment/Plan Assessment/Plan Assessment/Plan 1. Acute decompensated heart failure secondary to diastolic dysfunction. 2. Recent diagnosis of pulmonary embolism following COVID-19 infection in May 2020. 3. Recent diagnosis of COVID-19 infection in May 2020. 4. Known coronary artery disease, status post PCI x 2 stents in 2017. 5. Hypertension. 6. Hyperlipidemia. 7. Type 2 diabetes mellitus. 8. Chronic congestive heart failure due to diastolic dysfunction. 9. Chronic venous insufficiency. 10. Chronic kidney disease stage 3. 11. Severe tricuspid regurgitation. 12. LVEF 65-70% Plan Continue cardiac meds Change Lasix to 20mg po qd Coreg/Imdur/Hydralazine d/c'ed due to hypotension Continue PATRICIA-inh Normal LVEF on echo Monitor BP/HR Keep on Tele Patient near euvolemia Anticipate discharge in AM Will plan for cardiac stress test in outpatient setting. Have patient follow up with me in 2-3 weeks LENNOX MULTANI DO Jul 06, 2020 19:23
[2020-07-06] MEDS ORDERED: TYLENOL PO ONE (20:46)
[2020-07-06] MEDS: TYLENOL PO SCH (20:48)
[2020-07-06] MEDS: LIPITOR PO SCH (20:48)
[2020-07-07 03:56] VITALS: BP 145/68
[2020-07-07 03:57] VITALS: BP_SYST 119; BP_SYST 152; BP_DIAS 62; BP_DIAS 74; BP_DIAS 77
[2020-07-07 05:38] LABS: BASOPHIL % 0.1 % (0.0-0.2); LYMPHOCYTES # 1.46 10^3/uL1 (1.0-4.8); LYMPHOCYTES % 15.2 % (24.0-44.0); MEAN CORP HGB 30.5 pg (26-34); MONOCYTES # 0.3 10^3/uL (0.3-0.8); MONOCYTES % 3.5 % (5.0-12.0); NEUTROPHIL # 7.8 10^3/uL (1.8-7.7); NEUTROPHILS % 81.1 % (41.0-85.0); PLATELET COUNT 198 10^3/uL (150-400); RED CELL DISTRIBUTION WIDTH 14.5 % (11.5-14.5)
[2020-07-07 05:57] LABS: CALCIUM 9.1 mg/dL (8.4-10.5); CARBON DIOXIDE 26.8 mmol/L (20.0-32)
[2020-07-07] MEDS ORDERED: LEVOTHYROXINE SODIUM PO SCH (06:30)
[2020-07-07 08:55] VITALS: BP 107/59
[2020-07-07] MEDS ORDERED: LASIX PO SCH (09:00)
[2020-07-07] MEDS: DEXAMETHASONE 10 MG/ML VIAL IV SCH (10:32)
[2020-07-07] MEDS: ZESTRIL PO SCH (10:33)
[2020-07-07] MEDS: ASPIRIN EC PO SCH (10:33)
[2020-07-07] MEDS: ELIQUIS PO SCH (10:34)
--- NOTE | 2020-07-07 11:29 | PRM.DC ---
DC Summary Final Dx: Problems Medical Problems: (1) Acute exacerbation of CHF (congestive heart failure) Status: Acute ICD Codes: I50.9 - Heart failure, unspecified SNOMED: 421807760, [id number] Responsible Provider: Keith Echeverria MBA, MD - ED Problem Recorded: Jul 04, 2020 23:16 Last Edited By: Keith Echeverria MBA, MD - ED on Jul 04, 2020 23:16 (2) Acute on chronic diastolic congestive heart failure Status: Acute ICD Codes: I50.33 - Acute on chronic diastolic (congestive) heart failure SNOMED: [id number], [id number] Responsible Provider: ROCKY BOWEN MD Problem Recorded: Jul 05, 2020 11:41 Last Edited By: Rocky Bowen MD, Hospitalist on Jul 05, 2020 11:42 (3) CAD (coronary artery disease) Onset: Unknown Status: Chronic ICD Codes: I25.10 - Atherosclerotic heart disease of [place] coronary artery without angina pectoris SNOMED: [id number] Responsible Provider: PAULETTE ALEMAN MD Problem Recorded: Mar 01, 2017 14:59 Last Edited By: Janes Kent MD, Hospitalist on May 17, 2020 22:15 Impressions/Complications: Continue cardiac meds Change Lasix to 20mg po qd Coreg/Imdur/Hydralazine d/c'ed due to hypotension Continue PATRICIA-inh Normal LVEF on echo Monitor BP/HR Keep on Tele Patient near euvolemia Anticipate discharge in AM Will plan for cardiac stress test in outpatient setting. Have patient follow up with me in 2-3 weeks Patient tolerated diuresis well as well as short of breath and breathing improved. Patient did have episodes of hypotension, that is why patient's Coreg, Imdur, hydralazine were stopped patient to continue Lasix at 20 mg and PATRICIA inhibitor. Patient to follow-up with cardiology outpatient in 2 to 3 weeks for cardiac stress test patient stable for discharge. Review of Systems Constitutional: Weakness (Generalized without focal deficit), Malaise; No: Fever, Chills, Sweats, Other Eyes: No: Pain, Vision change, Conjunctivae inflammation, Eyelid inflammation, Redness ENT: No: Ear pain, Ear discharge, Nose discharge, Nose congestion, Mouth pain, Mouth swelling, Throat pain Respiratory: Cough, Dry, SOB with excertion; No: Shortness of breath, Wheezing, Hemoptysis, Pleuritic Pain, Sputum Cardiovascular: No: Chest Pain, Palpitations, Orthopnea, Paroxysmal Noc. Dyspnea, Edema, Lt Headedness Gastrointestinal: No: Nausea, Vomiting, Abdominal Pain, Diarrhea, Constipation, Melena, Hematochezia Genitourinary: No Dysuria, No Frequency, No Incontinence, No Hematuria, No Retention Musculoskeletal: No: neck pain, shoulder pain, arm pain, back pain, hand pain, leg pain, foot pain Skin: No: Rash, Lesions, Jaundice, Bruising Neurological: Weakness (Generalized without focal deficit); No: Numbness, Incoordination, Change in speech, Confusion, Seizures Physical Exam General: Alert, Oriented X3, Cooperative, No acute distress HEENT: Atraumatic, PERRLA, EOMI, Mucous membr. moist/pink, Other (Normocephalic. Oropharynx clear without erythema, exudates, or ulcerations.) Lungs: Clear to auscultation, Normal air movement, Other (Normal air movement. Rales in the bases bilaterally.) Heart: Regular rate, Normal S1, Normal S2, No murmurs Abdomen: Normal bowel sounds, Soft, No tenderness, No hepatospenomegaly, No masses Extremities: No clubbing, No cyanosis, No edema, Normal pulses, No tenderness/swelling Neuro: Normal speech, Strength at 5/5 X4 ext, Normal tone, Sensation intact, Cranial nerves 3-12 NL, Reflexes 2+ Psych/Mental Status: Mood NL HPI/Course Problems Acute/Active Problems: (1) Acute exacerbation of CHF (congestive heart failure) This is an 89-year-old female with a history of HTN, HLD, DM, CHF, chronic venous insufficiency, CKD 3, CAD, and recent PE. The patient was hospitalized here at [facility] in early May 2020 with COVID-19 pneumonia.During that hospital stay she was found to have bilateral pulmonary embolism. She was started on Eliquis, which she currently still takes. On 07/02/2020, the patient reported feeling tired, fatigued, weak. She had shortness of breath just walking across the bedroom. She denied chest pain. She noted a cough on which worsened on Tuesday. No sputum production. She is chronically on oxygen 2 L/min by nasal cannula and had the shortness of breath with minimal exertion even with the oxygen on. Because of the severe shortness of breath, she presented to the ED for evaluation. She denied fever, chills, sore throat, abdominal pain, nausea, vomiting, diarrhea. She denied missing any doses of her medications. In the ED, she was afebrile. White count normal. Blood chemistries unrema rkable. Rapid Covid test negative. D-dimer normal. BNP 6231, up about 2000 from the last value. Chest x-ray showed overall improvement compared to last image. The patient was felt to have exacerbation of heart failure. The warehouse shipping clerk on-call, Dr. Saucedo, was contacted. He recommended hospitalization and IV diuretics twice daily. The patient was given IV Lasix. The hospitalist service was contacted for admission. Lab/Cole/BBK/Rad Laboratory Tests Test 07/04/20 17:16 07/04/20 19:40 07/05/20 05:07 07/06/20 09:45 White Blood Count 9.0 10^3/uL 8.7 10^3/uL 8.1 10^3/uL Red Blood Count 4.08 10^6/uL 3.92 10^6/uL 3.99 10^6/uL Hemoglobin 12.2 g/dL 12.0 g/dL 12.1 g/dL Hematocrit 38.1 % 36.5 % 37.9 % Mean Corpuscular Volume 93.4 fL 93.1 fL 95.0 fL Mean Corpuscular Hemoglobin 29.9 pg 30.6 pg 30.3 pg Mean Corpuscular Hemoglobin Concent 32.0 g/dL 32.9 g/dL 31.9 g/dL Red Cell Distribution Width 15.6 % 15.6 % 15.4 % Platelet Count 181 10^3/uL 177 10^3/uL 187 10^3/uL Mean Platelet Volume 9.9 fL 9.6 fL 10.4 fL Neutrophils (%) (Auto) 58.5 % 61.0 % 50.7 % Lymphocytes (%) (Auto) 30.0 % 26.4 % 33.7 % Monocytes (%) (Auto) 8.4 % 8.9 % 9.3 % Neutrophils # (Auto) 5.3 10^3/uL 5.3 10^3/uL 4.1 10^3/uL Lymphocytes # (Auto) 2.70 10^3/uL1 2.30 10^3/uL1 2.71 10^3/uL1 Monocytes # (Auto) 0.8 10^3/uL 0.8 10^3/uL 0.8 10^3/uL Absolute Immature Granulocyte (auto 0.01 10^3 u/L 0.01 10^3 u/L 0.01 10^3 u/L Absolute Eosinophils (auto) 0.2 10^3/uL 0.3 10^3/uL 0.5 10^3/uL Immature Granulocytes % 0.10 % 0.10 % 0.10 % Eosinophils % 2.7 % 3.4 % 5.8 % Basophils % 0.3 % 0.2 % 0.4 % Basophils # 0.0 10^3/uL 0.0 10^3/uL 0.0 10^3/uL Prothrombin Time 12.5 SEC Prothrombin Time INR (Non-Therap) 1.2 Activated Partial Thromboplast Time 28.3 SEC D-Dimer 0.47 mg/L Sodium Level 144 mmol/L 145 mmol/L 146 mmol/L Potassium Level 3.5 mmol/L 3.3 mmol/L 4.2 mmol/L Chloride Level 108.0 mmol/L 108.0 mmol/L 108.0 mmol/L Carbon Dioxide Level 26.2 mmol/L 27.4 mmol/L 30.4 mmol/L Anion Gap 13.3 12.9 11.8 Blood Urea Nitrogen 16 mg/dL 17 mg/dL 15 mg/dL Creatinine 1.12 mg/dL 1.22 mg/dL 1.20 mg/dL Estimated GFR () 55.6 50.3 51.3 Est GFR (CKD-EPI)(Non-Afr Martiniquais) 45.9 41.6 42.4 BUN/Creatinine Ratio 14.0 13.0 12.0 Glucose Level 144 mg/dL 220 mg/dL 161 mg/dL Calcium Level 8.5 mg/dL 9.1 mg/dL 8.8 mg/dL Total Bilirubin 1.0 mg/dL 0.8 mg/dL Aspartate Amino Transf (AST/SGOT) 19 U/L 19 U/L Alanine Aminotransferase (ALT/SGPT) 16 U/L 13 U/L Alkaline Phosphatase 60 U/L 59 U/L Troponin I 0.05 ng/mL Pro-B-Type Natriuretic Peptide 6231 pg/mL 5481 pg/mL Total Protein 6.4 g/dL 6.1 g/dL Albumin 3.1 g/dL 2.9 g/dL Globulin 3.3 3.2 Albumin/Globulin Ratio 0.939 0.906 SARS-CoV-2 Antigen (Rapid) NEGATIVE Test 07/07/20 04:49 07/07/20 08:43 White Blood Count 9.6 10^3/uL Red Blood Count 3.84 10^6/uL Hemoglobin 11.7 g/dL Hematocrit 35.4 % Mean Corpuscular Volume 92.2 fL Mean Corpuscular Hemoglobin 30.5 pg Mean Corpuscular Hemoglobin Concent 33.1 g/dL Red Cell Distribution Width 14.5 % Platelet Count 198 10^3/uL Mean Platelet Volume 10.4 fL Neutrophils (%) (Auto) 81.1 % Lymphocytes (%) (Auto) 15.2 % Monocytes (%) (Auto) 3.5 % Neutrophils # (Auto) 7.8 10^3/uL Lymphocytes # (Auto) 1.46 10^3/uL1 Monocytes # (Auto) 0.3 10^3/uL Absolute Immature Granulocyte (auto 0.01 10^3 u/L Absolute Eosinophils (auto) 0.0 10^3/uL Immature Granulocytes % 0.10 % Eosinophils % 0.0 % Basophils % 0.1 % Basophils # 0.0 10^3/uL Sodium Level 141 mmol/L Potassium Level 4.1 mmol/L Chloride Level 104.0 mmol/L Carbon Dioxide Level 26.8 mmol/L Anion Gap 14.3 Blood Urea Nitrogen 25 mg/dL Creatinine 1.29 mg/dL Estimated GFR () 47.2 Est GFR (CKD-EPI)(Non-Afr Martiniquais) 39.0 BUN/Creatinine Ratio 19.0 Glucose Level 335 mg/dL Calcium Level 9.1 mg/dL Total Bilirubin 0.5 mg/dL Aspartate Amino Transf (AST/SGOT) 17 U/L Alanine Aminotransferase (ALT/SGPT) 14 U/L Alkaline Phosphatase 60 U/L Total Protein 6.2 g/dL Albumin 2.9 g/dL Globulin 3.3 Albumin/Globulin Ratio 0.878 Bedside Glucose 297 Vitals/I&O VS - Last 72 Hours, by Label Date Time Temp Pulse Resp B/P (MAP) Pulse Ox O2 Delivery O2 Flow Rate FiO2 07/07/20 11:08 Nasal Cannula 2.00 07/07/20 10:33 107/59 07/07/20 10:33 107/59 07/07/20 08:55 97.8 51 20 107/59 (75) 98 07/07/20 03:57 62 152/74 (100) Nasal Canula 07/07/20 03:57 65 152/77 (102) Nasal Canula 07/07/20 03:56 97.3 70 22 145/68 (93) 96 Nasal Canula 07/06/20 23:56 97.5 63 22 136/66 (89) 97 Nasal Canula 07/06/20 19:31 97.6 97 22 123/66 (85) 96 Nasal Canula 07/06/20 19:12 Nasal Cannula 2.00 07/06/20 17:10 97.9 71 22 105/48 (67) 97 07/06/20 17:09 69 24 96 07/06/20 17:08 97.9 71 22 105/48 (67) 97 07/06/20 13:36 97.7 55 20 124/64 (84) 98 07/06/20 10:21 Nasal Cannula 2.00 07/06/20 09:03 97.7 55 20 114/53 (73) 97 07/06/20 09:00 97.7 55 20 114/53 (73) 97 07/06/20 09:00 107/62 07/06/20 09:00 107/62 07/06/20 04:22 98.4 56 18 106/64 (78) 99 Room Air 2.00 Nasal Canula 07/06/20 00:28 97.2 57 18 105/85 (92) 96 Room Air 07/05/20 22:08 112/63 (79) 07/05/20 19:10 97.4 60 18 120/78 (92) 97 07/05/20 19:00 Nasal Cannula 2.00 07/05/20 17:03 97.8 60 19 87/49 (62) 95 07/05/20 12:50 98.1 63 19 88/53 (65) 96 Room Air 07/05/20 12:18 98.1 63 19 88/53 (65) 96 07/05/20 10:39 Room Air 07/05/20 09:48 122/71 07/05/20 09:47 58 122/71 07/05/20 09:47 58 122/71 07/05/20 09:46 122/71 07/05/20 09:00 122/71 07/05/20 08:46 98.0 58 19 122/71 (88) 98 07/05/20 05:09 97.5 56 20 141/59 (86) 96 Nasal Canula 2.00 07/05/20 04:57 67 153/78 (103) 92 Nasal Canula 2.00 07/05/20 04:48 86 151/76 (101) 92 Nasal Canula 2.00 07/05/20 02:12 Room Air 07/04/20 23:57 98.6 68 18 108/88 (95) 96 Nasal Canula 2.00 07/04/20 23:57 98.6 68 20 108/88 (95) 96 Nasal Canula 2.00 07/04/20 23:27 148/62 07/04/20 23:00 84 16 148/78 (101) 99 Nasal Canula 2.00 07/04/20 22:00 78 20 160/74 (102) 96 Nasal Canula 2.00 07/04/20 21:00 76 18 157/81 (106) 96 Nasal Canula 2.00 07/04/20 20:00 68 18 150/84 (106) 98 Nasal Canula 2.00 07/04/20 19:00 81 18 154/73 (100) 96 Nasal Canula 2.00 07/04/20 17:48 98.1 59 20 162/75 (104) 98 07/04/20 17:06 98.1 75 20 07/04/20 17:06 98.1 75 20 98 07/04/20 17:06 98.1 75 20 155/76 (102) 98 05/20/20 08:33 53 Scheduled Acetaminophen (Acetaminophen), 2 TAB PO HS, (Reported) Apixaban (Eliquis), 5 MG PO BID Aspirin (Aspir 81), 1 TAB PO DAILY, (Reported) Atorvastatin 40MG (Lipitor 40MG), 1 TAB PO DAILY, (Reported) Cholecalciferol (Vitamin D3) (Vitamin D3), 1 TAB PO DAILY, (Reported) Isosorbide Mononitrate (Isosorbide Mononitrate Er), 30 MG PO DAILY Lisinopril (Lisinopril), 1 TAB PO DAILY Multivit-Min/FA/Lutein/Zeaxant (Macular Vitamin Tablet), 1 EACH PO DAILY, (Reported) [place]-3 Fatty Acids (Fish Oil), 1,000 MG PO DAILY, (Reported) Omeprazole Magnesium (Prilosec Otc), 1 TAB PO DAILY, (Reported) Tramadol Hcl (Tramadol Hcl), 100 MG PO DAILY24, (Reported) Sepsis Reassessment @ DC Vital Sign - Last 24 Hours 07/06/20 07/06/20 07/06/20 07/06/20 09:00 09:00 09:00 09:03 Temp 97.7 97.7 Pulse 55 55 Resp 20 20 B/P (MAP) 107/62 107/62 114/53 (73) 114/53 (73) Pulse Ox 97 97 07/06/20 07/06/20 10:21 13:36 Temp 97.7 Pulse 55 Resp 20 B/P (MAP) 124/64 (84) Pulse Ox 98 O2 Delivery Nasal Cannula O2 Flow Rate 2.00 Intake and Output 07/06/20 07:00 Intake Total 480 ml Output Total 1400 ml Balance -920 ml Laboratory Tests Test 07/04/20 17:16 07/04/20 19:40 07/05/20 05:07 07/06/20 09:45 White Blood Count 9.0 10^3/uL 8.7 10^3/uL 8.1 10^3/uL Red Blood Count 4.08 10^6/uL 3.92 10^6/uL 3.99 10^6/uL Hemoglobin 12.2 g/dL 12.0 g/dL 12.1 g/dL Hematocrit 38.1 % 36.5 % 37.9 % Mean Corpuscular Volume 93.4 fL 93.1 fL 95.0 fL Mean Corpuscular Hemoglobin 29.9 pg 30.6 pg 30.3 pg Mean Corpuscular Hemoglobin Concent 32.0 g/dL 32.9 g/dL 31.9 g/dL Red Cell Distribution Width 15.6 % 15.6 % 15.4 % Platelet Count 181 10^3/uL 177 10^3/uL 187 10^3/uL Mean Platelet Volume 9.9 fL 9.6 fL 10.4 fL Neutrophils (%) (Auto) 58.5 % 61.0 % 50.7 % Lymphocytes (%) (Auto) 30.0 % 26.4 % 33.7 % Monocytes (%) (Auto) 8.4 % 8.9 % 9.3 % Neutrophils # (Auto) 5.3 10^3/uL 5.3 10^3/uL 4.1 10^3/uL Lymphocytes # (Auto) 2.70 10^3/uL1 2.30 10^3/uL1 2.71 10^3/uL1 Monocytes # (Auto) 0.8 10^3/uL 0.8 10^3/uL 0.8 10^3/uL Absolute Immature Granulocyte (auto 0.01 10^3 u/L 0.01 10^3 u/L 0.01 10^3 u/L Absolute Eosinophils (auto) 0.2 10^3/uL 0.3 10^3/uL 0.5 10^3/uL Immature Granulocytes % 0.10 % 0.10 % 0.10 % Eosinophils % 2.7 % 3.4 % 5.8 % Basophils % 0.3 % 0.2 % 0.4 % Basophils # 0.0 10^3/uL 0.0 10^3/uL 0.0 10^3/uL Prothrombin Time 12.5 SEC Prothrombin Time INR (Non-Therap) 1.2 Activated Partial Thromboplast Time 28.3 SEC D-Dimer 0.47 mg/L Sodium Level 144 mmol/L 145 mmol/L 146 mmol/L Potassium Level 3.5 mmol/L 3.3 mmol/L 4.2 mmol/L Chloride Level 108.0 mmol/L 108.0 mmol/L 108.0 mmol/L Carbon Dioxide Level 26.2 mmol/L 27.4 mmol/L 30.4 mmol/L Anion Gap 13.3 12.9 11.8 Blood Urea Nitrogen 16 mg/dL 17 mg/dL 15 mg/dL Creatinine 1.12 mg/dL 1.22 mg/dL 1.20 mg/dL Estimated GFR () 55.6 50.3 51.3 Est GFR (CKD-EPI)(Non-Afr Martiniquais) 45.9 41.6 42.4 BUN/Creatinine Ratio 14.0 13.0 12.0 Glucose Level 144 mg/dL 220 mg/dL 161 mg/dL Calcium Level 8.5 mg/dL 9.1 mg/dL 8.8 mg/dL Total Bilirubin 1.0 mg/dL 0.8 mg/dL Aspartate Amino Transf (AST/SGOT) 19 U/L 19 U/L Alanine Aminotransferase (ALT/SGPT) 16 U/L 13 U/L Alkaline Phosphatase 60 U/L 59 U/L Troponin I 0.05 ng/mL Pro-B-Type Natriuretic Peptide 6231 pg/mL 5481 pg/mL Total Protein 6.4 g/dL 6.1 g/dL Albumin 3.1 g/dL 2.9 g/dL Globulin 3.3 3.2 Albumin/Globulin Ratio 0.939 0.906 SARS-CoV-2 Antigen (Rapid) NEGATIVE Current Medications Medications (Trade) Dose Ordered Sig/Irais PRN Reason Start Time Stop Time Status Last Admin Acetaminophen (Tylenol) 1,000 mg HS 07/05/20 21:00 08/04/20 20:59 07/05/20 22:13 Aspirin (Aspirin Ec) 81 mg DAILY 07/05/20 09:00 08/04/20 08:59 07/06/20 10:05 Atorvastatin Calcium (Lipitor) 40 mg HS 07/05/20 21:00 08/04/20 20:59 07/05/20 22:12 Furosemide (Lasix) 40 mg BID 07/05/20 09:00 08/04/20 08:59 07/05/20 09:46 Levothyroxine Sodium (Levothyroxine Sodium) 25 mcg [id number] 07/07/20 06:30 08/06/20 06:29 Lisinopril (Zestril) 40 mg DAILY 07/05/20 09:00 08/04/20 08:59 07/05/20 09:00 Discharge Plan Patient tolerated diuresis well as well as short of breath and breathing improved. Patient did have episodes of hypotension, that is why patient's Coreg, Imdur, hydralazine were stopped patient to continue Lasix at 20 mg and PATRICIA inhibitor. Patient to follow-up with cardiology outpatient in 2 to 3 weeks for cardiac stress test patient stable for discharge. Prescription/RX: Active Scripts Active Lisinopril 40 Mg Tablet 1 Tab PO DAILY Eliquis (Apixaban) 5 Mg Tablet 5 Mg PO BID 30 Days Isosorbide Mononitrate Er (Isosorbide Mononitrate) 30 Mg Tab.er.24h 30 Mg PO DAILY Reported Tramadol Hcl 100 Mg Tbmp.24hr 100 Mg PO DAILY24 Acetaminophen 500 Mg Tablet 2 Tab PO HS Vitamin D3 (Cholecalciferol (Vitamin D3)) 5,000 Unit Tablet 1 Tab PO DAILY Lipitor 40MG (Atorvastatin Calcium) 40 Mg Tablet 1 Tab PO DAILY Prilosec Otc (Omeprazole Magnesium) 20 Mg Tablet. 1 Tab PO DAILY Macular Vitamin Tablet (Multivit-Min/FA/Lutein/Zeaxant) 1 Each Tablet 1 Each PO DAILY Aspir 81 (Aspirin) 81 Mg Tablet. 1 Tab PO DAILY Fish Oil ([place]-3 Fatty Acids) 500 Mg Capsule. 1,000 Mg PO DAILY TONYA ESCOBEDO MD Jul 07, 2020 11:28
[2020-07-07] MEDS ORDERED: LISI40TA PO (11:38)
[2020-07-07 13:03] VITALS: BP 114/54
--- NOTE | 2020-07-07 18:43 | NUR ---
[id number] Patient d/c'd home with . VSS Periheral line dc'd from [facility]. Discharge instructions provided and verbalized understanding. All belongings sent home with patient. Left unit via w/c in stable condition. No pain upon discharge.
== END 2020-07-07 17:20 | disposition home or self-care (01) | DRG 291 ==
LOC: ER 16:17 → MS 23:16 → EDBEDREQ 23:20 → MS 07-07 08:36
PROVIDERS: ADMIT Family Medicine; ATTEND Family Medicine
DX: I13.0 Hypertensive heart and chronic kidney disease with heart failure and stage 1 through stage 4 chronic kidney disease, or unspecified chronic kidney disease (principal); I50.33 Acute on chronic diastolic (congestive) heart failure; Z20.822 Contact with and (suspected) exposure to COVID-19; N18.30 Chronic kidney disease, stage 3 unspecified; I87.2 Venous insufficiency (chronic) (peripheral); E11.22 Type 2 diabetes mellitus with diabetic chronic kidney disease; E78.2 Mixed hyperlipidemia; Z86.16 Personal history of COVID-19; I25.10 Atherosclerotic heart disease of native coronary artery without angina pectoris; I95.9 Hypotension, unspecified; I36.1 Nonrheumatic tricuspid (valve) insufficiency; I45.10 Unspecified right bundle-branch block; Z82.49 Family history of ischemic heart disease and other diseases of the circulatory system; Z83.3 Family history of diabetes mellitus; Z86.711 Personal history of pulmonary embolism; Z90.710 Acquired absence of both cervix and uterus; Z98.61 Coronary angioplasty status; Z88.0 Allergy status to penicillin; Z88.5 Allergy status to narcotic agent; Z79.82 Long term (current) use of aspirin; Z79.899 Other long term (current) drug therapy; Z98.42 Cataract extraction status, left eye; Z98.41 Cataract extraction status, right eye
CPT/HCPCS: 36415; 71045; 80048; 80053; 82948; 83880; 84484; 85025; 85379; 85610; 85730; 87426; 93005; 93306; 99285; G0378; J1100; J1940; J7050

== ENCOUNTER → 2020-08-18 | Outpatient (CLI) | payer MEDICARE, OTHER ==
[~2020-08-18] MED LIST changes: -ISOS30TA4 PO; +ISOS30TA73 PO; +LEXISCAN IV ONE; -LISI-410 PO; +LISI20TA21 PO; -LISI40TA PO; +LISI40TA10 PO
--- NOTE | 2020-08-18 19:51 | STRESS ---
DATE OF SERVICE: 08/18/2020 CARDIAC STRESS TEST INDICATION: Chest pain. 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 Stress EKG shows normal sinus rhythm, unchanged from baseline. At recovery, EKG shows normal sinus rhythm, unchanged from baseline. Occasional premature atrial complexes noted on ECG during recovery. Baseline heart rate is 75 beats per minute and dropped to 74 beats per minute during stress. At the end of recovery, the heart rate was 84 beats per minute. Baseline blood pressure is 141/82 and remained the same during stress. At the end of recovery, the blood pressure was 145/82. Blood pressure and heart rate are appropriate for stress. There were no significant symptoms noted during stress. There were no arrhythmias noted during stress. EKG portion of stress test is negative for myocardial ischemia. Nuclear images were obtained with the rest dose of 9.41 mCi technetium 99 sestamibi and a stress dose of 32.7 mCi technetium 99 sestamibi. Nuclear images reveal homogeneous tracer distribution across all wall segments in both rest and stress images with no evidence of myocardial ischemia or infarction. Left ventricular ejection fraction is 73%. EDV is 34 mL, ESV is 9 mL. The left ventricle is normal in size. Gated motion images shows normal wall motion across all segments of the left ventricle. TID is 1.5. There is no evidence of diaphragmatic attenuation artifact. IMPRESSION: 1. Normal myocardial perfusion imaging with no evidence of myocardial ischemia or infarction. 2. Left ventricular ejection fraction of 73%. 3. This is a negative study. LENNOX MULTANI D.O. DR: ODELL/quin JOB# [id number]
== END | disposition home or self-care (01) ==
LOC: RAD 09:07
PROVIDERS: ATTEND Internal Medicine Interventional Cardiology
DX: I49.1 Atrial premature depolarization (principal); R06.02 Shortness of breath; R07.9 Chest pain, unspecified; I45.2 Bifascicular block
CPT/HCPCS: 78452; 93017; A9500; J2785

== ENCOUNTER → 2020-10-06 | Outpatient (CLI) | payer MEDICARE, OTHER ==
[~2020-10-06] MED LIST changes: -LEXISCAN IV ONE
[2020-10-06 15:05] LABS: MEAN CORP HGB 29.2 pg (26-34); RED CELL DISTRIBUTION WIDTH 13.9 % (11.5-14.5)
[2020-10-06 15:23] LABS: CALCIUM 8.9 mg/dL (8.4-10.5); CARBON DIOXIDE 25.2 mmol/L (20.0-32)
== END | disposition home or self-care (01) ==
LOC: NPLAB 14:34
PROVIDERS: ATTEND Nurse Practitioner Family
DX: E11.22 Type 2 diabetes mellitus with diabetic chronic kidney disease (principal); N18.30 Chronic kidney disease, stage 3 unspecified
CPT/HCPCS: 80053; 83036; 84439; 84443; 85027

== ENCOUNTER 2020-12-18 14:58 | Observation (INO) | payer MEDICARE, OTHER ==
[~2020-12-18] VITALS: Ht 167.6 cm; Wt 72.8 kg
[2020-12-18 15:26] VITALS: BP 164/82
[2020-12-18 15:31] VITALS: BP 164/82
--- NOTE | 2020-12-18 15:35 | PCM.EKG ---
[facility] Test Date: 2020-12-18 Test Time: 15:18:31 Pat Name: PB NAVARRO Department: Room: Gender: F [facility] Representative: ROBERTO : 1930 Requested By: LUIS FERNANDO ARROYO Order Number: [id number] Reading MD: Measurements Intervals [place] Rate: 77 P: -43 IL: 206 QRS: -65 QRSD: 142 T: 54 QT: 427 QTc: 484 Interpretive Statements Sinus rhythm RBBB and LAFB Left ventricular hypertrophy Compared to ECG 07/04/2020 17:27:02 No significant changes Please click the below link to view image of tracing.
[2020-12-18 15:41] LABS: BASOPHIL % 0.4 % (0.0-0.2); EOSINOPHIL # 0.2 10^3/uL (0.0-0.2); EOSINOPHIL % 2.1 % (0.0-5.0); LYMPHOCYTES # 3.05 10^3/uL1 (1.0-4.8); LYMPHOCYTES % 31.1 % (24.0-44.0); MEAN CORP HGB 29.6 pg (26-34); MONOCYTES # 0.7 10^3/uL (0.3-0.8); MONOCYTES % 6.9 % (5.0-12.0); NEUTROPHIL # 5.8 10^3/uL (1.8-7.7); NEUTROPHILS % 59.3 % (41.0-85.0); PLATELET COUNT 178 10^3/uL (150-400); RED CELL DISTRIBUTION WIDTH 14.5 % (11.5-14.5)
[2020-12-18 16:08] LABS: CARBON DIOXIDE 28.9 mmol/L (20.0-32)
[2020-12-18 16:09] LABS: ALANINE AMINOTRANSFERASE(ML) 28 U/L (12-78); ALKALINE PHOSPHATASE 72 U/L (50-136); ASPARTATE AMINO TRANSFERASE 25 U/L (0-35); CALCIUM 8.9 mg/dL (8.4-10.5); GLUCOSE 143 mg/dL (70-110)
--- NOTE | 2020-12-18 16:27 | DIREP ---
PROCEDURE:CHEST 1 VIEW COMPARISON:[facility], CT, CTA CHEST, 05/17/2020, 10:07 PM. [facility], CR, XRAY CHEST SINGLE VW, 05/01/2020, 12:56 PM. [facility], CR, XRAY CHEST SINGLE VW, 05/17/2020, 05:53 PM. [facility], CR, XRAY CHEST SINGLE VW, 07/04/2020, 06:01 PM. INDICATIONS:Chest pain FINDINGS: LUNGS/PLEURA:Diffusely increased interstitial opacities with peripheral infiltrates versus scarring, most prominent in the right mid lung and left lung base. No effusion or pneumothorax. VASCULATURE:Normal. Unremarkable pulmonary vasculature. CARDIAC:Normal. No cardiac silhouette abnormality or cardiomegaly. MEDIASTINUM:Normal. No visible mass or adenopathy. BONES:Normal. No fracture or visible bony lesion. OTHER:Negative. CONCLUSION: Diffusely increased interstitial opacities with peripheral infiltrates versus scarring in both lungs, most prominent in the right mid lung and left lung base. Dictated by: Timo Olguin M.D. On 12/18/2020 at 04:22 PM
[2020-12-18 16:42] VITALS: BP 141/76
[2020-12-18] MEDS ORDERED: LASIX IV STA (17:13)
--- NOTE | 2020-12-18 17:15 | ER.PDOC ---
General Chief Complaint: Cough/Congestion Stated Complaint: SOB Time seen by MD: 14:20 Source: patient, family Exam Limitations: no limitations History of Present Illness Timing/Duration: 24 hours Severity: mild Activities at Onset: none Prior Episodes/Possible Cause: occasional episodes Modifying Factors: improves with activity, improves with coughing, improves with oxygen Associated Symptoms: denies symptoms Prior symptoms/Treatment: Similar symptoms previous, Treated by Doctor Allergies: Coded Allergies: Penicillins (Unverified Adverse Reaction, Unknown, "IT JUST MAKES ME FEEL BAD", 02/28/17) codeine (Unverified Adverse Reaction, Unknown, "IT JUST MAKES ME FEEL BAD", 02/28/17) Home Meds Active Scripts Lisinopril (LISINOPRIL) 40 Mg Tablet, 1 TAB PO DAILY, #30 TAB 5 Refills Prov:TONYA ESCOBDEO MD 07/07/20 Apixaban (Eliquis) 5 Mg Tablet, 5 MG PO BID for 30 Days, #60 TAB 3 Refills Prov:ELOISE HEDRICK MD 05/20/20 Reported Medications Tramadol Hcl (TRAMADOL HCL) 100 Mg Tbmp.24hr, 100 MG PO DAILY24 05/01/20 Acetaminophen (ACETAMINOPHEN) 500 Mg Tablet, 2 TAB PO HS, #60 TAB 1 Refill 02/28/17 Cholecalciferol (Vitamin D3) (VITAMIN D3) 5,000 Unit Tablet, 1 TAB PO DAILY, #30 TAB 02/28/17 Atorvastatin 40MG (LIPITOR 40MG) 40 Mg Tablet, 1 TAB PO DAILY, #30 TAB 5 Refills 02/28/17 Omeprazole Magnesium (PRILOSEC OTC) 20 Mg Tablet.dr, 1 TAB PO DAILY, #30 TAB 3 Refills 02/28/17 Multivit-Min/FA/Lutein/Zeaxant (Macular Vitamin Tablet) 1 Each Tablet, 1 EACH PO DAILY, TABLET 01/24/14 Aspirin (ASPIR 81) 81 Mg Tablet.dr, 1 TAB PO DAILY, #30 TAB 5 Refills 01/24/14 [place]-3 Fatty Acids (FISH OIL) 500 Mg Capsule.dr, 1000 MG PO DAILY 01/24/14 Past Medical History Medical History: cardiac problems, hypertension Surgical History: hysterectomy Social History Alcohol Use: none Drug Use: none Review of Systems Constitutional: no symptoms reported EENTM: no symptoms reported Respiratory: shortness of breath Cardiovascular: no symptoms reported Gastrointestinal: no symptoms reported Musculoskeletal: no symptoms reported Skin: no symptoms reported Psychiatric/Neurological: no symptoms reported Hematologic/Lymphatic: no symptoms reported Physical Exam General Appearance: No Apparent Distress HEENT: PERRL/EOMI, Normal ENT Inspection Neck: Non-Tender, Full Range of Motion, Supple Respiratory: chest non-tender, lungs clear, normal breath sounds, no respiratory distress Cardiovascular: Normal Peripheral Pulses, Regular Rate, Rhythm Gastrointestinal: Normal Bowel Sounds Extremities: Normal Range of Motion Neurologic/Psychiatric: animal nurse II-XII NML as Tested Skin: Normal Color, Warm/Dry Results/Orders Results/Orders Orders - LUIS FERNANDO BARR MD Cbc With Auto Diff (12/18/20 15:32) Comprehensive Metabolic Panel (12/18/20 15:32) Creatine Kinase (12/18/20 15:32) Creatine Kinase Mb (12/18/20 15:32) Probnp B-Type Laser Machine Operator (12/18/20 15:32) Troponin I (12/18/20 15:32) D-Dimer (12/18/20 15:32) Blood Culture (12/18/20 15:32) Xr Chest 1v (12/18/20 15:32) PT (12/18/20 15:32) Partial Thromboplastin Time. (12/18/20 15:32) Ekg-Routine (12/18/20 15:32) Covid19 Antigen Mei [place] (12/18/20 15:32) Furosemide (Lasix) (12/18/20 17:13) Furosemide (Lasix) (12/18/20 18:03) Vital Signs Date Time Temp Pulse Resp B/P (MAP) Pulse Ox O2 Delivery O2 Flow Rate FiO2 12/18/20 18:51 65 95 12/18/20 17:35 79 110/69 (83) 95 12/18/20 16:42 64 141/76 (97) 95 12/18/20 15:31 98.3 74 18 164/82 (109) 99 Room Air 12/18/20 15:26 98.3 74 18 99 12/18/20 15:26 98.3 74 18 Administered Medications Medications (Trade) Dose Ordered Sig/Irais Route PRN Reason Start Time Stop Time Status Last Admin Dose Admin Furosemide (Lasix) 40 mg STAT STAT IV 12/18/20 17:13 12/18/20 17:14 UNV 12/18/20 18:02 40 MG Laboratory Tests Test 12/18/20 15:25 White Blood Count 9.8 10^3/uL (4.5-11.0) Red Blood Count 4.59 10^6/uL (4.00-5.20) Hemoglobin 13.6 g/dL (12.0-15.0) Hematocrit 42.8 % (36.0-46.0) Mean Corpuscular Volume 93.2 fL (78-100) Mean Corpuscular Hemoglobin 29.6 pg (26-34) Mean Corpuscular Hemoglobin Concent 31.8 g/dL (33-36.5) L Red Cell Distribution Width 14.5 % (11.5-14.5) Platelet Count 178 10^3/uL (150-400) Mean Platelet Volume 9.7 fL (7.8-11.0) Neutrophils (%) (Auto) 59.3 % (41.0-85.0) Lymphocytes (%) (Auto) 31.1 % (24.0-44.0) Monocytes (%) (Auto) 6.9 % (5.0-12.0) Neutrophils # (Auto) 5.8 10^3/uL (1.8-7.7) Lymphocytes # (Auto) 3.05 10^3/uL1 (1.0-4.8) Monocytes # (Auto) 0.7 10^3/uL (0.3-0.8) Absolute Immature Granulocyte (auto 0.02 10^3 u/L (0-2) Absolute Eosinophils (auto) 0.2 10^3/uL (0.0-0.2) Immature Granulocytes % 0.20 % (0.00-0.50) Eosinophils % 2.1 % (0.0-5.0) Basophils % 0.4 % (0.0-0.2) H Basophils # 0.0 10^3/uL (0.0-0.1) Prothrombin Time 12.1 SEC (9.6-12.0) H Prothrombin Time INR (Non-Therap) 1.1 Activated Partial Thromboplast Time 24.0 SEC (24.67-30.72) D-Dimer 0.46 mg/L (0.19-0.49) Sodium Level 145 mmol/L (132-145) Potassium Level 3.6 mmol/L (3.6-5.2) Chloride Level 106.0 mmol/L (96-109) Carbon Dioxide Level 28.9 mmol/L (20.0-32) Anion Gap 13.7 Blood Urea Nitrogen 24 mg/dL (7-18) H Creatinine 1.20 mg/dL (0.59-1.40) Estimated GFR () 51.3 (>/=60) Est GFR (CKD-EPI)(Non-Afr [place]) 42.4 (>/=60) BUN/Creatinine Ratio 20.0 Glucose Level 143 mg/dL (70-110) H Calcium Level 8.9 mg/dL (8.4-10.5) Total Bilirubin 0.6 mg/dL (0.2-1.0) Aspartate Amino Transferase (AST) 25 U/L (0-35) Alanine Aminotransferase (ALT) 28 U/L (12-78) Alkaline Phosphatase 72 U/L (50-136) Total Creatine Kinase 28 U/L (26-192) Creatine Kinase MB 2.5 ng/mL (0.5-3.6) Troponin I < 0.02 ng/mL (0.00-0.05) Pro-B-Type Natriuretic Peptide 2237 pg/mL (0-450) H Total Protein 6.9 g/dL (6.4-8.2) Albumin 3.6 g/dL (3.4-5.0) Globulin 3.3 Albumin/Globulin Ratio 1.090 EKG/XRAY/CT/US EKG: NSR, LVH, no ST T wave changes XRAY Comments: clear wnl Consult/PCP Time Consult/PCP Called: 18:00 Consult/PCP: Dr Teresa BARRERA DEPART Departure Time of Disposition: 17:16 Disposition: 09 ADMITTED INPATIENT Impression: Primary Impression: Congestive heart failure Condition: Improved Referrals: NEFTALY CALL HOISTING ENGINE OPERATOR (PCP) PRIMARY CARE PROVIDER Comments PAtient has multiple co morbiditis and will require gentle diuresis and monitoring Duration or Time Spent with Pa: LUIS FERNANDO NAGY MD Dec 18, 2020 17:15
[2020-12-18 17:35] VITALS: BP 110/69
[2020-12-18] MEDS ORDERED: LASIX ONE (18:03)
[2020-12-18 20:19] VITALS: BP 126/62
--- NOTE | 2020-12-18 22:00 | NUR ---
ARRIVAL PT ARRIVED ON THE UNIT AT THIS TIME VIA WHEELCHAIR.
[2020-12-19 00:33] VITALS: BP 158/77
--- NOTE | 2020-12-19 01:50 | PCM.HP ---
HISTORY AND PHYSICAL Date of Arrival on Unit: Dec 19, 2020 Chief Complaint Dyspnea on exertion HPI Ms. Pérez is an 89-year-old woman with a past medical history of CHF, hypertension, hyperlipidemia, GERD, and a recent infection of COVID-19 in Apr 2020 presenting with dyspnea and exertion. Patient reports having dyspnea exertion since recovering from infection with Covid pneumonia. She reports over the past few days the disposition is gotten more significant and she is unable to complete most of her daily activities without being significantly short of breath. She denies any changes in diet, any change in medication or any recent illnesses. Allergies Allergies Coded Allergies Penicillins (Unverified Adverse Reaction, Unknown, "IT JUST MAKES ME FEEL BAD", 02/28/17) codeine (Unverified Adverse Reaction, Unknown, "IT JUST MAKES ME FEEL BAD", 02/28/17) Scheduled Acetaminophen (Acetaminophen), 2 TAB PO HS, (Reported) Apixaban (Eliquis), 5 MG PO BID Aspirin (Aspir 81), 1 TAB PO DAILY, (Reported) Atorvastatin 40MG (Lipitor 40MG), 1 TAB PO DAILY, (Reported) Cholecalciferol (Vitamin D3) (Vitamin D3), 1 TAB PO DAILY, (Reported) Furosemide (Lasix), 20 MG PO DAILY24, (Reported) Lisinopril (Lisinopril), 1 TAB PO DAILY Multivit-Min/FA/Lutein/Zeaxant (Macular Vitamin Tablet), 1 EACH PO DAILY, (R eported) [place]-3 Fatty Acids (Fish Oil), 1,000 MG PO DAILY, (Reported) Omeprazole Magnesium (Prilosec Otc), 1 TAB PO DAILY, (Reported) Tramadol Hcl (Tramadol Hcl), 100 MG PO DAILY24, (Reported) Other Pt history Problems Medical Problems: (1) 2019 novel coronavirus disease (COVID-19) Status: Acute ICD Codes: U07.1 - COVID-19 SNOMED: 775640221 (2) Acute exacerbation of CHF (congestive heart failure) Status: Acute ICD Codes: I50.9 - Heart failure, unspecified SNOMED: 577744762, 99630122887861 (3) Acute exacerbation of CHF (congestive heart failure) Status: Acute ICD Codes: I50.9 - Heart failure, unspecified SNOMED: 768221791, 97327904106676 (4) Acute on chronic diastolic congestive heart failure Status: Acute ICD Codes: I50.33 - Acute on chronic diastolic (congestive) heart failure SNOMED: 252988187, 751649219 (5) Bradycardia Status: Acute ICD Codes: R00.1 - Bradycardia, unspecified SNOMED: 18416088 (6) Hypoxia Status: Acute ICD Codes: R09.02 - Hypoxemia SNOMED: 564423296 (7) Pneumonia Status: Acute ICD Codes: J18.9 - Pneumonia, unspecified organism SNOMED: 622873007 (8) Pneumonia due to 2019 novel coronavirus Status: Acute ICD Codes: U07.1 - COVID-19; J12.89 - Other viral pneumonia SNOMED: 738041269410274161 (9) Shortness of breath Status: Acute ICD Codes: R06.02 - Shortness of breath SNOMED: 531342896 Family History No pertinent family medical history ROS A 14 point review of systems was done and pertinent positives include significant dyspnea exertion is improved since admission. VITALS Vital Signs Date Time Temp Pulse Resp B/P (MAP) Pulse Ox O2 Delivery O2 Flow Rate FiO2 12/19/20 12:35 93 14 93 Room Air 12/19/20 12:32 98.2 149/80 (103) EXAM General: Alert and oriented x3, in no acute distress, pleasant, conversational Head: Normocephalic, atraumatic Eyes: Pupils equal round and reactive to light accommodation, extraocular motion intact Neck: No lymphadenopathy, no JVD Respiratory: Diffuse coarse breath sounds throughout lungs, Not on oxygen Heart: Regular rate and rhythm, no murmurs heard Abdomen: Nontender to palpation, no distention Neuro: Cranial nerves II through XII intact, alert and oriented x3, reflexes equal and reactive bilaterally LAB/AGUEDA/BBK/PATH Laboratory Tests Test 12/18/20 15:25 12/19/20 02:02 White Blood Count 9.8 10^3/uL (4.5-11.0) 8.3 10^3/uL (4.5-11.0) Red Blood Count 4.59 10^6/uL (4.00-5.20) 4.34 10^6/uL (4.00-5.20) Hemoglobin 13.6 g/dL (12.0-15.0) 13.1 g/dL (12.0-15.0) Hematocrit 42.8 % (36.0-46.0) 40.5 % (36.0-46.0) Mean Corpuscular Volume 93.2 fL (78-100) 93.3 fL (78-100) Mean Corpuscular Hemoglobin 29.6 pg (26-34) 30.2 pg (26-34) Mean Corpuscular Hemoglobin Concent 31.8 g/dL (33-36.5) 32.3 g/dL (33-36.5) Red Cell Distribution Width 14.5 % (11.5-14.5) 14.5 % (11.5-14.5) Platelet Count 178 10^3/uL (150-400) 178 10^3/uL (150-400) Mean Platelet Volume 9.7 fL (7.8-11.0) 10.0 fL (7.8-11.0) Neutrophils (%) (Auto) 59.3 % (41.0-85.0) 60.9 % (41.0-85.0) Lymphocytes (%) (Auto) 31.1 % (24.0-44.0) 28.3 % (24.0-44.0) Monocytes (%) (Auto) 6.9 % (5.0-12.0) 8.0 % (5.0-12.0) Neutrophils # (Auto) 5.8 10^3/uL (1.8-7.7) 5.1 10^3/uL (1.8-7.7) Lymphocytes # (Auto) 3.05 10^3/uL1 (1.0-4.8) 2.36 10^3/uL1 (1.0-4.8) Monocytes # (Auto) 0.7 10^3/uL (0.3-0.8) 0.7 10^3/uL (0.3-0.8) Absolute Immature Granulocyte (auto 0.02 10^3 u/L (0-2) 0.02 10^3 u/L (0-2) Absolute Eosinophils (auto) 0.2 10^3/uL (0.0-0.2) 0.2 10^3/uL (0.0-0.2) Immature Granulocytes % 0.20 % (0.00-0.50) 0.20 % (0.00-0.50) Eosinophils % 2.1 % (0.0-5.0) 2.2 % (0.0-5.0) Basophils % 0.4 % (0.0-0.2) 0.6 % (0.0-0.2) Basophils # 0.0 10^3/uL (0.0-0.1) 0.1 10^3/uL (0.0-0.1) Prothrombin Time 12.1 SEC (9.6-12.0) Prothrombin Time INR (Non-Therap) 1.1 Activated Partial Thromboplast Time 24.0 SEC (24.67-30.72) D-Dimer 0.46 mg/L (0.19-0.49) Sodium Level 145 mmol/L (132-145) 147 mmol/L (132-145) Potassium Level 3.6 mmol/L (3.6-5.2) 3.8 mmol/L (3.6-5.2) Chloride Level 106.0 mmol/L (96-109) 107.0 mmol/L (96-109) Carbon Dioxide Level 28.9 mmol/L (20.0-32) 33.3 mmol/L (20.0-32) Anion Gap 13.7 10.5 Blood Urea Nitrogen 24 mg/dL (7-18) 24 mg/dL (7-18) Creatinine 1.20 mg/dL (0.59-1.40) 1.27 mg/dL (0.59-1.40) Estimated GFR () 51.3 (>/=60) 48.1 (>/=60) Est GFR (CKD-EPI)(Non-Afr [place]) 42.4 (>/=60) 39.7 (>/=60) BUN/Creatinine Ratio 20.0 18.0 Glucose Level 143 mg/dL (70-110) 237 mg/dL (70-110) Calcium Level 8.9 mg/dL (8.4-10.5) 9.1 mg/dL (8.4-10.5) Total Bilirubin 0.6 mg/dL (0.2-1.0) Aspartate Amino Transf (AST/SGOT) 25 U/L (0-35) Alanine Aminotransferase (ALT/SGPT) 28 U/L (12-78) Alkaline Phosphatase 72 U/L (50-136) Total Creatine Kinase 28 U/L (26-192) Creatine Kinase MB 2.5 ng/mL (0.5-3.6) Troponin I < 0.02 ng/mL (0.00-0.05) Pro-B-Type Natriuretic Peptide 2237 pg/mL (0-450) Total Protein 6.9 g/dL (6.4-8.2) Albumin 3.6 g/dL (3.4-5.0) Globulin 3.3 Albumin/Globulin Ratio 1.090 IMAGING PROCEDURE:CHEST 1 VIEW COMPARISON:[facility], CT, CTA CHEST, 05/17/2020, 10:07 PM. [facility], CR, XRAY CHEST SINGLE VW, 05/01/2020, 12:56 PM. [facility], CR, XRAY CHEST SINGLE VW, 05/17/2020, 05:53 PM. [facility], CR, XRAY CHEST SINGLE VW, 07/04/2020, 06:01 PM. INDICATIONS:Chest pain FINDINGS: LUNGS/PLEURA:Diffusely increased interstitial opacities with peripheral infiltrates versus scarring, most prominent in the right mid lung and left lung base. No effusion or pneumothorax. VASCULATURE:Normal. Unremarkable pulmonary vasculature. CARDIAC:Normal. No cardiac silhouette abnormality or cardiomegaly. MEDIASTINUM:Normal. No visible mass or adenopathy. BONES:Normal. No fracture or visible bony lesion. OTHER:Negative. CONCLUSION: Diffusely increased interstitial opacities with peripheral infiltrates versus scarring in both lungs, most prominent in the right mid lung and left lung base. SUMMARY Ms. Pérez was admitted initially for concerns of a CHF exacerbation and given IV Lasix. Patient symptoms improved quickly but she continued to have coarse breath sounds likely due to scarring from COVID-19 virus. When patient was seen in the morning she reported feeling much better and was ready to go home. Patient was stable from a medical standpoint and was counseled on a cardiac diet, to resume activity as tolerated, to follow-up with her recovery advocate, and to establish care with a basin operator. There were no changes to her medication. ASSESSMENT/PLAN CHF exacerbation -BMP with mild dyspnea not requiring oxygen supplementation -Status post IV Lasix -Continue goal-directed therapy for congestive heart failure Lung scarring -The need to follow-up with a basin operator outpatient to monitor her respiratory status History of pulmonary emboli on May 17, 2020 Is an right heart strain -Concerns for type for pulmonary hypertension Long-term use of anticoagulation Hypertension -Stable Hyperlipidemia Full code Cardiac diet Stable for discharge Patient was discharged within 24 hours of admission and this note will serve as also a discharge summary XIAO LYNN MD Dec 19, 2020 01:50
[2020-12-19] MEDS ORDERED: SENOKOT PO PRN (02:00)
[2020-12-19 02:22] LABS: CALCIUM 9.1 mg/dL (8.4-10.5); CARBON DIOXIDE 33.3 mmol/L (20.0-32)
[2020-12-19 03:15] LABS: BASOPHIL # 0.1 10^3/uL (0.0-0.1); BASOPHIL % 0.6 % (0.0-0.2); EOSINOPHIL # 0.2 10^3/uL (0.0-0.2); EOSINOPHIL % 2.2 % (0.0-5.0); LYMPHOCYTES # 2.36 10^3/uL1 (1.0-4.8); LYMPHOCYTES % 28.3 % (24.0-44.0); MEAN CORP HGB 30.2 pg (26-34); MONOCYTES # 0.7 10^3/uL (0.3-0.8); NEUTROPHIL # 5.1 10^3/uL (1.8-7.7); NEUTROPHILS % 60.9 % (41.0-85.0); PLATELET COUNT 178 10^3/uL (150-400); RED CELL DISTRIBUTION WIDTH 14.5 % (11.5-14.5)
[2020-12-19 04:54] VITALS: BP 137/48
[2020-12-19 07:35] VITALS: BP 154/64
[2020-12-19] MEDS ORDERED: PROTONIX PO SCH (09:00)
[2020-12-19] MEDS ORDERED: ELIQUIS PO SCH (09:00)
[2020-12-19] MEDS ORDERED: ASPIRIN EC PO SCH (09:00)
[2020-12-19] MEDS ORDERED: ZESTRIL PO SCH (09:00)
[2020-12-19] MEDS ORDERED: ULTRAM PO SCH (09:00)
[2020-12-19] MEDS ORDERED: VITAMIN D PO SCH (09:00)
[2020-12-19] MEDS ORDERED: FURO-81 PO (12:07)
--- NOTE | 2020-12-19 12:12 | NUR ---
DISCHARGE PLANNING PATIENT CURRENTLY [email or web address] WITH SPOUSE AND IND WITH ALL [facility] AND CURRENTLY ON SERVICES FOR [facility]. PATIENT TO DISCHARGE HOME WITH RESUMPTION OF HOME CARE WITH [facility]. CM SPOKE TO [email or web address] AND [facility] REQUESTED CLINICALS. CM FAXED CLINICALS TO [facility]@[phone]. FAX CONFIRMATION CONFIRMED. PATIENT BEING DISCHARGED FORM OBS 12/19/20
[2020-12-19 12:32] VITALS: BP 149/80
[2020-12-19 12:35] VITALS: BP 149/80
--- NOTE | 2020-12-19 12:35 | NUR ---
DISCHARGE DISCHARGE INSTRUCTIONS GIVEN AND QUESTIONS ANSWERED, VOICED UNDERSTANDING
--- NOTE | 2020-12-19 13:49 | NUR ---
DISCHARGE PT DECLINED W/C AMBULATED TO PRIVATE VEHICLE ACCOMPANIED BY THIS NURSE, STEADY GAIT, APPARENT STABLE CONDITION
[2020-12-19] MEDS ORDERED: LIPITOR PO SCH (21:00)
== END 2020-12-19 13:49 | disposition home or self-care (01) ==
LOC: ER 14:58 → UNDOADMOB 19:51 → INTOOBSV 19:51 → MS 19:51
PROVIDERS: ADMIT Internal Medicine; ATTEND Internal Medicine
DX: I11.0 Hypertensive heart disease with heart failure (principal); I50.33 Acute on chronic diastolic (congestive) heart failure; J98.4 Other disorders of lung; E78.5 Hyperlipidemia, unspecified; K21.9 Gastro-esophageal reflux disease without esophagitis; Z86.711 Personal history of pulmonary embolism; Z88.0 Allergy status to penicillin; Z79.82 Long term (current) use of aspirin; Z90.710 Acquired absence of both cervix and uterus; Z86.16 Personal history of COVID-19; Z79.899 Other long term (current) drug therapy
CPT/HCPCS: 36415 ×2; 71045; 80048; 80053; 82550; 82553; 83880; 84484; 85025 ×2; 85379; 85610; 85730; 87040; 87077; 87186; 93005; 96374; 99285; G0378 ×3; J1940

== ENCOUNTER → 2021-06-10 | Outpatient (CLI) | payer MEDICARE, OTHER ==
[~2021-06-10] MED LIST changes: +POTA-148 PO; -POTA20TA14 PO
[2021-06-10 19:36] LABS: CARBON DIOXIDE 25.4 mmol/L (20.0-32)
== END | disposition home or self-care (01) ==
LOC: NPLAB 18:42
PROVIDERS: ATTEND Nurse Practitioner Family
DX: I13.0 Hypertensive heart and chronic kidney disease with heart failure and stage 1 through stage 4 chronic kidney disease, or unspecified chronic kidney disease (principal); E11.65 Type 2 diabetes mellitus with hyperglycemia
CPT/HCPCS: 80048

== ENCOUNTER → 2021-06-23 | Outpatient (CLI) | payer MEDICARE, OTHER ==
[2021-06-23 17:05] LABS: CARBON DIOXIDE 26.1 mmol/L (20.0-32)
[2021-06-23 17:33] LABS: BASOPHIL # 0.1 10^3/uL (0.0-0.1); BASOPHIL % 0.6 % (0.0-0.2); EOSINOPHIL # 0.2 10^3/uL (0.0-0.2); EOSINOPHIL % 1.8 % (0.0-5.0); LYMPHOCYTES # 2.46 10^3/uL1 (1.0-4.8); LYMPHOCYTES % 27.9 % (24.0-44.0); MEAN CORP HGB 30.2 pg (26-34); MONOCYTES # 0.5 10^3/uL (0.3-0.8); MONOCYTES % 5.3 % (5.0-12.0); NEUTROPHIL # 5.7 10^3/uL (1.8-7.7); NEUTROPHILS % 64.4 % (41.0-85.0); PLATELET COUNT 187 10^3/uL (150-400); RED CELL DISTRIBUTION WIDTH 13.5 % (11.5-14.5)
== END | disposition home or self-care (01) ==
LOC: LAB 16:19
PROVIDERS: ATTEND Nurse Practitioner Family
DX: I13.0 Hypertensive heart and chronic kidney disease with heart failure and stage 1 through stage 4 chronic kidney disease, or unspecified chronic kidney disease (principal); E11.65 Type 2 diabetes mellitus with hyperglycemia
CPT/HCPCS: 80053; 84439; 84443; 85025

== ENCOUNTER → 2021-07-14 | Outpatient (CLI) | payer MEDICARE, OTHER ==
--- NOTE | 2021-07-15 00:01 | PCM.ECHO ---
APPROVED REPORT EXAM: Comprehensive 2D, Doppler, and color-flow Echocardiogram. Patient Location: OUT-PATIENT Indications Hypertension/HDD 2D Dimensions LVOT Diameter 2.08 (1.8-2.4cm) LVEF(%) 65.31 (>50%) M-Mode Dimensions RVDd 1.70 (2.1-3.2cm) Left Atrium(MM) 3.80 (2.5-4.0cm) IVSd 1.15 (0.7-1.1cm) Aortic Root 3.00 (2.2-3.7cm) LVDd 3.95 (4.0-5.6cm) Aortic Cusp Exc 1.90 (1.5-2.0cm) PWd 0.75 (0.7-1.1cm) IVSs 1.65 cm FS (%) 34.85 % LVDs 2.55 (2.0-3.8cm) ESV(Teich) 24.60 ml PWs 1.25 cm LVEF(%) 64.67 (>50%) Volumes Biplane 2D LV Volumes Biplane 2D LA Volumes LVEDv A4C 62.99 mL LA ESV Index LVESv A4C 21.85 mL Aortic Valve AoV Peak West. 1.45 m/s AoV VTI 23.90 cm AO Peak GR. 8.60 mmHg AO Mean GR. 5.30 mmHg LVOT VTI 21.87 cm LVOT Peak [place]. 1.03 m/s ANTWON(VTI)/BSA 3.10 cm2/m2 ANTWON (VTI) 3.10 cm2 Mitral Valve MV E Velocity 0.55m/s MR Peak Gr. 13.80mmHg MV A Velocity 1.20m/s TDI Lateral E' P. V 0.06m/s Medial E' P. V 0.06m/s Pulmonary Valve PV Peak Velocity 0.65m/s PV Peak Grad. 1.75mmHg RVOT VTI 10.85cm Tricuspid Valve TR P. Velocity 2.45m/s RAP ESTIMATE 10.00mmHg TR Peak Gr. 24.39mmHg RVSP 34.39mmHg LEFT VENTRICLE The left ventricle is normal size. The left ventricular systolic function is normal. The left ventricular ejection fraction is within the normal range. There is normal left ventricular wall thickness. There is normal LV segmental wall motion. There is no ventricular septal defect visualized. No left ventricle thrombus noted on this study. LVEF is 60-65%. RIGHT VENTRICLE The right ventricle is normal size. The right ventricular systolic function is normal. There is normal right ventricular wall thickness. ATRIA The left atrium size is normal. The right atrium size is normal. The interatrial septum is intact with no evidence for an atrial septal defect. AORTIC VALVE Mild aortic valve sclerosis. There is no aortic valvular stenosis. No aortic regurgitation is present. There is no aortic valvular vegetation. MITRAL VALVE Mitral valve leaflets are thickened. There is no mitral valve stenosis. Mild mitral regurgitation. There is no evidence of mitral valve vegetations. TRICUSPID VALVE The tricuspid valve is normal in structure. There is no tricuspid valve stenosis. Moderate tricuspid regurgitation. Moderate pulmonary hypertension. There is no tricuspid valve vegetations. PULMONIC VALVE Pulmonic valve is not well visualized. There is no pulmonic valvular stenosis. There is no pulmonic valvular regurgitation. GREAT VESSELS The aortic root is normal in size. Pulmonary artery is not well visualized. Aortic arch is not well visualized. The IVC is normal in size and collapses >50% with inspiration. PERICARDIUM There is no pericardial effusion. There is no pleural effusion. Other Information Study Quality: Fair <Conclusion> The left ventricular systolic function is normal. LVEF is 60-65%. Mild mitral regurgitation. Moderate tricuspid regurgitation. Moderate pulmonary hypertension. Electronically signed by : LENNOX MULTANI. 07/15/2021 00:00:33
== END | disposition home or self-care (01) ==
LOC: RT 13:10
PROVIDERS: ATTEND Internal Medicine Interventional Cardiology
DX: I08.1 Rheumatic disorders of both mitral and tricuspid valves (principal); I27.20 Pulmonary hypertension, unspecified
CPT/HCPCS: 93306

== ENCOUNTER → 2021-12-03 | Outpatient (CLI) | payer MEDICARE, OTHER ==
[~2021-12-03] MED LIST changes: +TRAM100T11 PO; -TRAM100T3 PO
[2021-12-03 14:04] LABS: MEAN CORP HGB 29.8 pg (26-34); RED CELL DISTRIBUTION WIDTH 13.7 % (11.5-14.5)
[2021-12-03 14:13] LABS: CARBON DIOXIDE 32.8 mmol/L (20.0-32)
[2021-12-03 14:22] LABS: BILIRUBIN,URINE NEGATIVE (NEGATIVE); UROBILINOGEN,URINE 0.2 E.U./dL (0.2)
== END | disposition home or self-care (01) ==
LOC: LAB 13:34
PROVIDERS: ATTEND Internal Medicine Nephrology
DX: E11.22 Type 2 diabetes mellitus with diabetic chronic kidney disease (principal); N18.4 Chronic kidney disease, stage 4 (severe)
CPT/HCPCS: 36415; 80069; 81001; 82570; 83036; 83735; 83970; 84156; 85027